=== PATIENT | female | born 1935 | race Caucasian/White ===

== ENCOUNTER 2016-12-13 15:43 | Outpatient (CLI) | payer MEDICARE, BC ==
[~2016-12-13] VITALS: Ht 167.6 cm; Wt 96.8 kg
--- NOTE | ~2016-12-13 | HEMODYNAMI ---
PATIENT:TEX PRADO MEDICAL RECORD: [id number] : 33 [id number] ADMISSION DATE: 12/13/16 Generatedon:12/14/201613:31 Patient name: TEX PRADO Patient #: [id number] SSN: [id number] : 1935 Date of study: 12/14/2016 Page: Of Hemodynamic Procedure Report Patient Data Patient Demographics Procedure consent was obtained First Name: TEX Gender: Female Last Name: JOHAN : 1935 [facility] Initial: Sesar Age: 81 year(s) Patient #: [id number] Race: SSN: [id number] Additional ID: [id number] Contact details Address: [address] [place] [address] State: [place] City: [place] Zip code: [address] Past Medical History Allergies Allergen Reaction Date Comments Reported Other allergy 12/14/2016 HCTZ Admission Admission Data Admission Date: 12/13/2016 Admission Time: 17:09 Arrival Date: 12/14/2016 Arrival Time: 17:09 Admit Source: Other Insurance Payor: Medicare Room #: D.2111 Height (in.): 66 BSA: 2.05 (m2) Height (cm.): 167.64 BMI: 34.38 (kg/m2) Weight (lbs.): 213 Weight (kg.): 96.62 Lab Results Lab Result Date: 12/14/2016 Lab Result Time: 0:00 Biochemistry Name Units Result Min Max BUN mg/dl 28 --(----)-* 7 18 Creatinine mg/dl 1 --(--*-)-- 0.6 1.3 CBC Name Units Result Min Max Hemoglobin g/dl 11.3 *-(----)-- 13.5 17.5 Procedure Procedure Types Cath Procedure Diagnostic Procedure LHC LHC w/Coronaries w/Grafts PCI Procedure Coronary Stent Initial Miscellaneous Procedures Moderate Sedation up to 15 minutes Procedure Description Procedure Date Procedure Date: 12/14/2016 Procedure Start Time: 13:04 Procedure End Time: 13:29 Procedure Staff Name Function Chandan Luna MD Performing Physician Nurys Riley RT Scrub Jim Chavarria RN Nurse Paulina Mcfarland RT Monitor Procedure Data Cath Procedure Fluoroscopy Diagnostic fluoroscopy Total fluoroscopy Time: 9.4 time: 9.4 min min Diagnostic fluoroscopy Total fluoroscopy dose: dose: 1094 mGy 1094 mGy Contrast Material Contrast Material Type Amount (ml) Isovue 300 186 Entry Location Entry Primary Successful Side Size Upsize Upsize Entry Closure Succes sful Closure Location (Fr) 1 (Fr) 2 (Fr) Remarks Device Remarks Femoral Right 5 Fr 6 Fr Exoseal artery Short Estimated blood loss: 10 ml Diagnostic catheters Device Type Used For End Catheter Placement Cordis 5Fr Pigtail Procedure Catheter (MP) Cordis 5Fr JL 4.0 Procedure Catheter (MP) Cordis 5Fr 3DRC Catheter Procedure (MP) Diagnostic Infinity 5Fr Procedure AR 2 MOD catheter Procedure Complications No complications Procedure Medications Medication Administration Route Dosage Oxygen NC 2 l/min Lidocaine 2% added to field 20 Heparin Flush Bag added to field 2 bags (1000units/500ml NS) 0.9% NaCl I.V. 100 ml/hr Versed I.V. 1 mg Fentanyl I.V. 50 mcg Versed I.V. 1 mg Fentanyl I.V. 50 mcg Heparin Bolus I.V. 4000 units Versed I.V. 1 mg Fentanyl I.V. 50 mcg Fentanyl I.V. 50 mcg Plavix P.O. 75 mg Hemodynamics Rest BSA: 2.05 (m2) HGB: 11.3 (g/dl) O2 Consumption: Estimated: 198.22 (ml/min) O2 Co nsumption indexed: Estimated:96.69 (ml/min/m) Heart Rate: 89 (bpm) Snapshots Pre Cath Intra NCS Post Cath Vital Signs Time Heart Resp SPO2 etCO2 DT4tict NIBP (mmHg) Rhythm Pain Sedation Rate (ipm) (%) (mmHg) (mmHg) Status Level (bpm) 12:58:30 84 19 96 0 0 173/84(132) NSR 0 (11) 10(A) , No pain 13:03:09 84 17 99 0 0 150/71(126) NSR 0 (11) 10(A) , No pain 13:08:20 85 18 98 0 0 145/66(122) NSR 0 (11) 9(A) , No pain 13:12:42 90 18 99 0 0 146/68(113) NSR 0 (11) 9(A) , No pain 13:17:09 89 16 99 0 0 151/67(112) NSR 0 (11) 9(A) , No pain 13:21:29 90 18 98 0 0 139/60(107) NSR 0 (11) 9(A) , No pain 13:25:53 89 18 99 0 0 141/66(95) NSR 0 (11) 10(A) , No pain 13:30:15 88 17 99 0 0 146/67(104) NSR 0 (11) 10(A) , No pain Medications Time Medication Route Dose Verified Delivered Reason Notes Effectiveness by by 12:57:21 Oxygen NC 2 Chandan Buffie used for l/min Jeremy Chavarria RN procedure 12:57:30 Lidocaine 2% added 20ml Chandan Chandan for local to vial Jeremy Luna MD anesthetic field 12:57:35 Heparin Flush added 2 Chandan Chandan used for Bag to bags Jeremy Luna MD procedure (1000units/500ml field NS) 12:57:44 0.9% NaCl I.V. 100 Chandan Buffie Per physician ml/hr Jeremy Chavarria RN 13:02:11 Versed I.V. 1 mg Chandan Buffie for sedation Jeremy Chavarria RN 13:02:16 Fentanyl I.V. 50 Chandan Buffie for sedation mcg Jeremy Chavarria RN 13:06:24 Versed I.V. 1 mg Chandan Buffie for sedation Jeremy Chavarria RN 13:06:28 Fentanyl I.V. 50 Chandan Buffie for sedation mcg Jeremy Chavarria RN 13:14:43 Heparin Bolus I.V. 4000 Chandan Buffie for verifi ed units Jeremy Chavarria RN anticoagulation with dr luna 13:18:56 Versed I.V. 1 mg Chandan Buffie for sedation Jeremy Chavarria RN 13:19:00 Fentanyl I.V. 50 Chandan Buffie for sedation mcg Jeremy Chavarria RN 13:25:09 Fentanyl I.V. 50 Chandan Buffie for sedation mcg Jeremy Chavarria RN 13:29:17 Plavix P.O. 75 mg Chandan Chavarria RN antiplatelet therapy Procedure Log Time Note 12:25:03 Informed consent obtained and on chart 12::58 Admit Source: Other 12:: Arrival Date: 12/14/2016 5:09:00 PM 12:26:18 Insurance Payor : Medicare 12::51 Lab Result : Creatinine 1 mg/dl 12:: Lab Result : BUN 28 mg/dl 12:: Lab Result : Hemoglobin 11.3 g/dl 12::56 Diagnostic Cath Status : Elective 12::32 Jim Chavarria RN sent for patient. Start room use. 12::33 Time tracking: Regular hours 12::39 Plan of Care:Hemodynamics will remain stable., Cardiac rhythm will remain stable., Comfort level will be maintained., Respiratory function will remain adequate., Patient/ family verbilizes understanding of procedure., Procedure tolerated without complication., Recovers from procedure without complications.. 12:42:07 Patient received from Med II to CCL 1 Alert and oriented. Tansferred to table in Supine position. 12:42:08 Warm blankets applied, and fariba hugger turned on for patient comfort. 12:42:08 Correct patient and procedure confirmed by team. 12:42:09 ECG and BP/O2 sat monitors applied to patient. 12:52:20 Patient Height : 66 cm 12:52:26 Patient Weight : 213 kg 12:52:51 Procedure type changed to Cath procedure, Diagnostic procedure, LHC, LHC w/Coronaries w/Grafts, PCI procedure, Coronary Stent Initial, Miscellaneous Procedures, Moderate Sedation up to 15 minutes 12:57:08 Vital chart was started 12:57:21 Oxygen 2 l/min NC was administered by Jim Chavarria RN; used for procedure; 12:57:30 Lidocaine 2% 20ml vial added to field was administered by Chandan Luna MD; for local anesthetic; 12:57:35 Heparin Flush Bag (1000units/500ml NS) 2 bags added to field was administered by Chandan Luna MD; used for procedure; 12:57:44 0.9% NaCl 100 ml/hr I.V. was administered by Jim Chavarria RN; Per physician; 12:59:36 Baseline sample Acquired. 12:59:47 Rhythm: sinus rhythm 12:59:50 Full Disclosure recording started 13:00:17 H&P Date Dictated: 12/13/2016 Within 30 days and on chart., H&P Addendum completed by physician on day of procedure. (MUST COMPLETE FOR ALL OUTPATIENTS). 13:00:25 Pre-procedure instructions explained to patient. 13:00:33 Family in patients room. 13:00:35 Patient NPO since Midnight. 13:00:58 Patient allergic to Other allergyHCTZ 13:01:02 Is the patient allergic to Iodine/contrast media? No. 13:01:04 Is patient on blood thinner?Yes 13:01:12 ACC The patient was administered the following blood thiners within the last 24 hours: ACCAspirin, ACCPlavix, ACCLovenox 13:01:16 Patient diabetic? No. 13:01:20 Snore? No 13:01:22 Sleep apnea? No 13:01:32 Patient pain scale 0/10 ?. 13:01:44 IV patent on arrival in left forearm with 0.9% NaCl at [facility]. 13:01:49 Lab results completed and on chart. 13:01:53 Right groin area was prepped with chlora-prep and draped in sterile fashion 13:01:55 Alarms reviewed by R. N. 13:01:56 Sharps counted by scrub and verified by R.N. 13:01:56 Physician paged 13:01:58 Physician arrived 13:01:59 --------ALL STOP TIME OUT------ 13:01:59 Final Timeout: patient, procedure, and site verified with staff and physician. All members of the team are in agreement. 13:02:02 Right groin site verified by team. 13:02:06 Sedation plan: IV Moderate Sedation Versed, Fentanyl 13:02:11 Versed 1 mg I.V. was administered by Jim Chavarria RN; for sedation; 13:02:16 Fentanyl 50 mcg I.V. was administered by Jim Chavarria RN; for sedation; 13:04:30 Procedure started. 13:04:43 Local anesthetic to right femoral artery with Lidocaine 2% by Chandan Luna MD.INITIAL ACCESS ONLY 13:04:50 Zero performed for pressure channel P1 13:06:04 A 5 Fr sheath was inserted into the Right Femoral artery 13:06:24 Versed 1 mg I.V. was administered by Jim Chavarria RN; for sedation; 13:06:28 Fentanyl 50 mcg I.V. was administered by Jim Chavarria RN; for sedation; 13:06:47 Use device set Femoral Dx 13:06:49 Acist Syringe opened to sterile field. 13:06:49 Bag Decanter opened to sterile field. 13:06:50 Medline Cath Pack opened to sterile field. 13:06:50 Terumo 5Fr [place] Sheath opened to sterile field. 13:06:51 [place] 260cm J .035 wire opened to sterile field. 13:06:52 Acist Hand Control opened to sterile field. 13:06:52 Acist Manifold opened to sterile field. 13:06:53 Diagnostic Infinity 5Fr Multipack catheter opened to sterile field. 13:06:54 Tegaderm 4 x 4 opened to sterile field. 13:06:59 A Cordis 5Fr Pigtail Catheter (MP) was advanced over the wire and used for Procedure. 13:07:11 EF : 55 % 13:07:16 Catheter removed. 13:07:26 A Cordis 5Fr JL 4.0 Catheter (MP) was advanced over the wire and used for Procedure. 13:08:41 Catheter removed. 13:09:27 A Cordis 5Fr 3DRC Catheter (MP) was advanced over the wire and used for Procedure. 13:09:42 ANDRADE to LAD angiography performed. 13:10:24 Catheter removed. 13:10:45 A Diagnostic Infinity 5Fr AR 2 MOD catheter was advanced over the wire and used for Procedure. 13:10:51 SVG to RCA angiography performed. 13:12:27 SVG to Circ angiography performed. 13:13:45 Sullivan Whisper J 300cm 0.014 guide wire opened to sterile field. 13:13:46 Merit BasixCompak Inflation Kit opened to sterile field. 13:13:47 Terumo 6Fr [place] Sheath opened to sterile field. 13:13:55 Catheter removed. 13:13:56 Proceeding to intervention. 13:14:19 Archipelagotronic Launcher 6Fr MB 1 guide catheter opened to sterile field. 13:14:29 Sheath upsized to a 6 Fr Short. 13:14:43 Heparin Bolus 4000 units I.V. was administered by Jim Chavarria RN; for anticoagulation; verified with dr luna 13:16:19 6 Fr MB 1 guide catheter was inserted over the wire 13:16:28 Whisper wire advanced. 13:16:33 Wire advanced across lesion. 13:18:53 Inflation Number: 1 A Biofreedom 2.5 x 11 stent was prepped and advanced across the 1st RPL. The stent was deployed at 13 ART for 0:10 (min:sec). 13:18:56 Versed 1 mg I.V. was administered by Jim Chavarria RN; for sedation; 13:19:00 Fentanyl 50 mcg I.V. was administered by Jim Chavarria RN; for sedation; 13:19:21 Stent catheter was removed intact over wire. 13:22:00 Wire removed. 13:22:18 Better Weekdays Choice PT Extra Support J 300cm .014 gu opened to sterile field. 13:22:27 choice pt wire advanced. 13:25:09 Fentanyl 50 mcg I.V. was administered by Jim Chavarria RN; for sedation; 13:25:39 Unable to access the PLV 13:26:44 Cordis 6Fr Exoseal opened to sterile field. 13:27:13 Wire removed. 13:27:15 Guide catheter removed. 13:27:31 Sheath removed intact; hemostasis achieved with Exoseal to the Right Femoral artery. 13:27:34 Procedure ended.(Physican Out) 13:27:47 Fluoroscopy time 09.40 minutes. 13:27:54 Fluoroscopy dose: 1094 mGy 13:27:54 Flurop Dose total: 1094 13:27:59 Contrast amount:Isovue 300 186ml. 13:28:01 Sharps counted by scrub and verified by R.N. 13:28:09 Post Procedure Pulses reassessed and unchanged 13:28:14 Estimated blood loss: 10 ml 13:28:15 Post procedure instruction explained to patient.Patient verbalizes understanding. 13::19 Patient needs reinforcement of post procedure teaching. 13:28:40 Procedure and supply charges have been captured, reviewed, submitted and are correct. 13:29:17 Plavix 75 mg P.O. was administered by Jim Chavarria RN; for antiplatelet therapy; 13:29:25 Procedure Complication : No complications 13::29 Vital chart was stopped 13::30 See physician's report for complete and final results. 13:29:33 Report given to [facility]. 13:29:37 Patient transfered to [facility] with Bed. 13:29:39 Procedure ended. 13:29:39 Full Disclosure recording stopped 13:29:42 End room use (Document Last) Intervention Summary Intervention Notes Time ActionType Lesion and Equipment Action# Pressure Duration Attributes Used 13:18:53 Place stent 1st RPL Biofreedom 1 13 00:10 2.5 x 11 stent Device Usage Item Name Manufacture Quantity Catalog Number Hospital Part Current Minim al Lot# / Charge Number Stock Stock Serial# Code Acist Acist 1 22534 [id number] 344647 373621 20 Syringe Medical Systems Inc Bag Microtek 1 2002S 654455 17324 484390 5 Subimage Inc. Medline Cardinal 1 [id number] 957464 82783 212043 5 Cath Pack Health Terumo 5Fr Terumo 1 [id number] 719570 252202 314859 [address] Eliceo 1 506342 722377 778377 180419 30 260cm J .035 wire Acist Hand Acist 1 52505 847887 467967 282175 5 Control Medical Systems Inc Acist Acist 1 38448 416771 878359 004526 5 Youxigu Medical Systems Inc Diagnostic Cardinal 1 [id number] 212970 20244 508600 30 Infinity Health 5Fr Multipack catheter Tegaderm 4 3M 1 1626W 496685 653285 982811 5 x 4 Cordis 5Fr Cardinal 1 376674 5 Pigtail Health Catheter (MP) Cordis 5Fr Cardinal 1 815318 5 JL 4.0 Health Catheter (MP) Cordis 5Fr Cardinal 1 782519 5 3DRC Health Catheter (MP) Diagnostic Cardinal 1 [id number] 134308 255777 170005 20 Infinity Health 5Fr AR 2 MOD catheter Sullivan Sullivan 1 [id number] 679655 911321 253243 5 Whisper J Vascular 300cm 0.014 guide wire Merit Merit 1 [id number] 740680 409980 541292 15 Unsilo Medical Inflation Kit Terumo 6Fr Terumo 1 [id number] 064144 658949 528285 40 [place] Sheath Medtronic Medtronic 1 [id number] 247467 31194 304114 1 Launcher 6Fr MB 1 guide catheter Biofreedom Biosensors 1 BFRC2-2511 806492 062179 5 [id number] 2.5 x 11 Europe SA stent [place] Sci [place] 1 [id number] 350461 265057 130593 5 Choice PT Scientific Extra Support J 300cm .014 gu Cordis 6Fr Cardinal 1 EX600 251859 086518 644170 10 Exoseal Health Signature Audit Gerald Stage Time Signature Unsigned Intra-Procedure 12/14/2016 Paulina Mcfarland 1:31:34 PM RT(R) Signatures Monitor : Paulina Mcfarland Signature : RT Date : Time : [facility] [address] [place] [address]
[2016-12-13 16:53] LABS: BASOPHILS 0.4 % (0-2); EOSINOPHILS 1.7 % (0-7); HEMATOCRIT 34.4 % (36.0-48.0); HEMOGLOBIN 11.3 g/dL (12-16); LYMPHOCYTES 30.3 % (15-50); MCH 31.1 pg (26.0-34.0); MCHC 32.8 g/dL (31.0-37.0); MCV 94.8 fL (80.0-100.0); MEAN PLATELET VOLUME 9.3 fL (7.4-10.4); NEUTROPHILS 59.6 % (40-80); PLATELET COUNT 236 10x3/uL (130-400); RBC 3.63 10x6/uL (4.00-5.40); RDW 14.9 % (11.5-14.5); WBC 7.5 10x3/uL (4.8-10.8)
[2016-12-13 17:24] LABS: ALBUMIN 3.9 g/dL (3.4-5.0); ALKALINE PHOSPHATASE 52 U/L (46-116); ALT (SGPT) 23 U/L (10-68); BILIRUBIN - TOTAL 0.46 mg/dL (0.2-1.3); CALC OSMOLALITY 272 mosm/kg (275-300); CALCIUM 9.6 mg/dL (8.5-10.1); CHLORIDE - SERUM 97 mmol/L (98-107); GLUCOSE 88 mg/dL (74-106); POTASSIUM - SERUM 4.1 mmol/L (3.5-5.1); PROTEIN - SERUM 7.8 g/dL (6.4-8.2); SODIUM 134 mmol/L (136-145); UREA NITROGEN 28 mg/dL (7-18); eGFR NON AFRICAN AMERICAN 56 mL/min (90-120)
[2016-12-13 17:38] LABS: CHOL - HDL RATIO 4.3 ratio (2.3-4.1); CHOLESTEROL, TOTAL 209 mg/dL (0-200); CKMB 2.1 U/L (0.0-3.6); CREATINE KINASE 97 UL (21-215); HDL CHOLESTEROL 49 mg/dL (32-96); LDL CHOLESTEROL 149 mg/dL (0-100); TRIGLYCERIDE 58 mg/dL (30-200)
[2016-12-13 17:39] LABS: TROPONIN-I < 0.017 ng/mL (0.000-0.060)
[2016-12-13 19:30] VITALS: BP 138/56
[2016-12-13 19:40] VITALS: Ht 167.6 cm; Wt 96.8 kg
[2016-12-13 20:00] VITALS: BP 138/56
--- NOTE | 2016-12-13 20:18 | NUR ---
ASSESSMENT COMPLETED FOR ADMISSION PROCESS. FAMILY TO BRING UP HER MEDICATIONS IN THE MORNING AND REPORTS SHE DOESN'T HAVE ANY TO TAKE AT BEDTIME. CALL LIGHT WITHIN REACH.
[2016-12-13] MEDS ORDERED: NITROSTAT0.4 MG SL (22:21)
--- NOTE | 2016-12-13 23:04 | NUR ---
PT. IN BED WITH HOB UP FOR COMFORT WITH EYES CLOSED AND RESP. DEEP AND EVEN. CALL LIGHT WITHIN REACH.
[2016-12-14] VITALS: BP 138/63
--- NOTE | 2016-12-14 01:18 | NUR ---
PT. IN BED WITH HOB UP FOR COMFORT WITH EYES CLOSED AND RESP. DEEP AND EVEN. CALL LIGHT WITHIN REACH.
--- NOTE | 2016-12-14 03:18 | NUR ---
PT. IN BED WITH HOB UP FOR COMFORT LYING ON HER LEFT SIDE. EYES ARE CLOSED AND RESP. DEEP AND EVEN. CALL LIGHT WITHIN REACH.
[2016-12-14 04:00] VITALS: BP 146/64
[2016-12-14 08:00] VITALS: BP 138/60
--- NOTE | 2016-12-14 08:06 | HP ---
PATIENT: TEX CORONA MEDICAL RECORD: [id number] ACCOUNT: [id number] LOCATION:[facility].2110 : 33 ADMISSION DATE: 12/13/16 HISTORY AND PHYSICAL EXAMINATION ADMITTING DIAGNOSES: 1. Unstable angina. 2. Coronary artery disease. 3. Status post coronary artery bypass graft surgery. 4. Rheumatoid rhinitis. HISTORY OF PRESENT ILLNESS: Mrs. Corona presents with anginal symptomatology times 1 day. It started in her jaw this morning, progressed to chest pain. As best she can remember, this is like her previous angina, status post bypass surgery approximately 10 years ago at [facility], 3-vessel. Her EKG is with no acute ST-T abnormalities. She continues to have the discomfort. PHYSICAL EXAMINATION: GENERAL APPEARANCE: Well-nourished, well-developed, appears stated age. Level of distress, comfortable. PSYCHIATRIC: Mental status, alert, normal affect. Orientation, oriented to time, place and person. EYES: Lids and conjunctiva, noninjected. No discharge, no pallor. ENT: Lips, teeth, gums, normal dentition. Oropharynx, no cyanosis, no pallor. NECK: Carotid arteries, bilateral normal upstroke, no bruits, no thrills. JUGULAR VEINS: No jugular venous pressure or distention. CERVICAL LYMPH NODES: Nontender, nonenlarged. THYROID: Not enlarged. Nontender. No nodules. LUNGS: Respiratory effort, unlabored. CHEST: Normal curvature. No thoracic deformity. No chest wall tenderness. Percussion, resonant. Auscultation, clear. No wheezes, no rales, no rhonchi. CARDIOVASCULAR: Precordial exam, nondisplaced. No heaves or pericardial thrills. Rate and rhythm, regular. Heart sounds, normal S1, normal S2. No S3, no gallop, no rub. Systolic murmur, not heard. Diastolic murmur, not heard. EXTREMITIES: No cyanosis, no edema. Peripheral pulses, full and equal in all extremities, except as noted. No bruits appreciated. ABDOMEN: Soft, nondistended. Normal aorta. No bruit. Nontender. No masses. Liver, nontender, no hepatomegaly. Spleen, nontender, no splenomegaly. MUSCULOSKELETAL: No joint tenderness. No joint swelling. No erythema. NEUROLOGICAL: Normal gait, normal strength, normal tone. SKIN: Warm and dry. REVIEW OF SYSTEMS: The patient reports easy bruising but reports no swollen glands. The patient reports no fever, no night sweats, no significant weight gain, no significant weight loss. No significant exercise tolerance. The patient reports no dry eyes, no irritation, no vision change. Patient reports no difficulty hearing and no ear pain. Patient reports no frequent nose bleeds or nose and sinus problems. Patient reports on arm pain on exertion. No shortness of breath while lying down. No history of heart murmur. Patient reports no cough, no wheezing or coughing up blood. Patient reports no abdominal pain, no vomiting. Normal appetite. No diarrhea and not vomiting blood. No nausea and no constipation. Patient reports no incontinence. No difficulty urinating. No hematuria. No increased frequency. Patient reports no muscle aches. No weakness, no arthralgias, no back pain. No swelling of the extremities. Patient reports no abnormal mole, no jaundice, no rashes. Reports HISTORY AND PHYSICAL [id number] IRONS,TEX J no loss of consciousness. No weakness and no numbness. No seizures, dizziness, or headaches. The patient reports no depression, no sleep disturbance, feeling safe in a relationship and no alcohol abuse. Patient reports on fatigue. Reports no runny nose or sinus pressure. No itching, no hives, and no frequent sneezing. OVERALL IMPRESSION: Most likely, she has graft failure or impending graft failure or new disease. We will proceed with coronary angiography in a.m. We will load with aspirin and Plavix and enoxaparin. Further care depends upon the results of the catheterization. TRANSINT:[id number] Voice Confirmation ID: [id number] DOCUMENT ID: [id number] TERRIE CERVANTES MD at 0806 CC: [id number] DICTATION DATE: 12/13/16 171 INFORMATION ASSURANCE ENGINEER: 12/13/16 1730 [place] [address]
--- NOTE | 2016-12-14 08:20 | NUR ---
AM ROUNDING- RECEIVED REPORT FROM ELECTRICAL SYSTEMS DRAFTER NURSE STEVE MALIK. PT IS CURRENTLY SITTING UP IN BED WITH EYES OPEN RESTING. NPO FOR CATH THIS AM. CONSENTS ARE SIGNED AND IN CHART. EZIO SINGH IS GETTING PT READY FOR HIPACLEANSE BATH. ON MONITOR SHOWING SR, HR 82. ON ROOM AIR. IV SEEN TO LEFT FOREARM THAT IS CURRENTLY SALINE LOCKED. PT HAS SUBLINGUAL NITRO AT BEDSIDE PER REPORT IF PT HAS ANY CHEST PAIN. PT IS ALERT AND ORIENTED. UP AD ASHLEY. WILL CONTINUE TO MONITOR AND CONTINUE WITH PLAN OF CARE.
[2016-12-14 12:00] VITALS: BP 144/59
--- NOTE | 2016-12-14 12:37 | NUR ---
COURTESY CLERK CALLED TO PRE-OP PT. GAVE PT PRE-OP MEDICATIONS ORDERED WITH A SIP OF WATER. PT URINATED PRIOR TO LEAVING ROOM. STEVE OLVERA IS TAKING PT TO COURTESY CLERK VIA BED. WILL CONTINUE TO MONITOR.
--- NOTE | 2016-12-14 13:36 | NUR ---
STEVE BARRIOS RECEIVED REPORT FROM CHIEF GROWTH OFFICER. WILL AWAIT PT ARRIVAL AND START VITAL SIGNS PER POLICY.
--- NOTE | 2016-12-14 13:46 | NUR ---
PT BACK FROM ASSEMBLER MOVEMENT VIA BED. ON AT 2L VIA NC. STARTED IV FLUIDS AT 100CC/HR ORDERED. PT INSTRUCTED TO LIE FLAT FOR 4 HOURS, PT AGREED. CLEAN, DRY, AND INTACT DRESSING SEEN TO RIGHT GROIN AREA FROM STENT PLACEMENT. SON IS AT BEDSIDE. WILL CONTINUE TO MONITOR.
[2016-12-14] MEDS ORDERED: ASPIRIN81 MG PO (13:49)
[2016-12-14] MEDS ORDERED: PLAVIX75 MG PO (13:50)
--- NOTE | 2016-12-14 14:31 | NUR ---
CALLED FILE DRAWER FINISHER BECAUSE PT IS ASKING IF SHE CAN EAT OR DRINK ANYTHING. SPOKE WITH NILTON AND NILTON STATED PT CAN EAT AND DRINK NOW. WILL CONTINUE TO MONITOR.
[2016-12-14 16:00] VITALS: BP 134/55
--- NOTE | 2016-12-14 16:35 | NUR ---
EKG DONE ORDERED AND PLACED IN CHART.
--- NOTE | 2016-12-14 16:49 | NUR ---
DRESSING TO PROCEDURE SITE WHERE PT HAD CATH IS CLEAN, DRY, AND INTACT. NO BLEEDING SEEN. PT HAS REMAINED LYING STRAIGHT INSTRUCTED. WILL CONTINUE TO MONITOR.
--- NOTE | 2016-12-14 17:55 | NUR ---
D/C INSTRUCTIONS EXPLAINED TO PT. D/C PAPERWORK SIGNED BY PT AND PLACED IN CHART. HEART MONITOR REMOVED AND RETURNED TO [facility] WITH TELEMETRY. IV REMOVED TO LEFT FOREARM WITH CATH TIP INTACT COVERED SITE WITH 2X2 GAUZE PADS AND SECURED WITH TAPE. INSTRUCTED PT TO HOLD FIRM DIRECT PRESSURE OVER CATH SITE (RIGHT GROIN) IF PT SEES BLEEDING FROM SITE FOR SOME REASON, PT AGREED. DRESSING TO RIGHT GROIN WHERE PT HAD CATH TODAY IS CLEAN, DRY, AND INTACT. AWAITING PT TO GET BELONGINGS TOGETHER AND GET DRESSED. WILL CONTINUE TO MONITOR.
--- NOTE | 2016-12-14 18:22 | NUR ---
PT D/C VIA WHEELCHAIR.
--- NOTE | 2016-12-15 13:47 | OP ---
PATIENT NAME: TEX PRADO MEDICAL RECORD: [id number] :33 LOCATION:D.M2 D.2111 ADMISSION DATE:12/13/16 SURGEON: TERRIE CERVANTES MD DATE OF OPERATION: 12/14/2016 PROCEDURES: 1. PTCA stent, RCA, PLV through patent vein graft. 2. Left heart catheterization. 3. Selective coronary angiography. 4. Left ventriculogram. 5. ANDRADE angiography. 6. Vein graft angiography. INDICATIONS: Angina and coronary artery disease. PROCEDURE IN DETAIL: After informed consent was obtained and after detailed explanation of risks, benefits as well as alternative therapies, the patient elected to proceed with angiogram and angioplasty. The right femoral area was prepped and draped in normal sterile fashion. The right femoral artery was cannulated via modified Seldinger technique with placement of 6-Telugu sheath. All catheters were exchanged through this sheath. FINDINGS: Left ventriculogram was performed in the standard 30-degree HERRON view, reveals preserved cardiac wall motion, ejection fraction is 60%. SELECTIVE CORONARY ANGIOGRAPHY: 1. Left main is with 80% stenosis. 2. The left anterior descending is totally occluded. 3. Left circumflex is totally occluded. 4. Right coronary is totally occluded. 5. ANDRADE to the LAD is widely patent. Distal LAD is diffusely diseased, but widely patent. 6. Vein graft to the circumflex is widely patent. Distal circumflex is with no significant disease. 7. Vein graft to the right coronary is patent; however, the right PDA has a 90% stenosis at the ostium with a very angulated takeoff. The PLV has 80% stenosis in the mid vessel. This is a relatively large PLV territory. PTCA STENT OF THE PLV: PLV lesion was 8 mm in length. There was ZEUS-3 flow before the intervention and this was a ____ vessel. We addressed this is a 2.5 x 11 mm BioFreedom stent. Result was 0% residual stenosis, ZEUS-3 flow after the intervention. We attempted to wire the PDA. We could not wire the PDA due to the extreme angulated takeoff. OVERALL IMPRESSION: Successful percutaneous transluminal coronary angioplasty stent of the right PLV going from 80% initial stenosis to 0% residual stenosis. TRANSINT:[id number] Voice Confirmation ID: [id number] DOCUMENT ID: [id number] OPERATIVE REPORT [id number] TEX PRADO JEFFREY MD at 1347 CC: [id number] DICTATION DATE: 12/14/16 1357 REEXAMINER: 12/14/161921 DIS IN 12/14/16 [facility] [address] [place] [address]
--- NOTE | 2016-12-16 08:58 | DS ---
PATIENT:TEX CORONA :33 MEDICAL RECORD: [id number] DISCHARGE SUMMARY ADMISSION DATE: 12/13/16 DISCHARGE DATE: 12/14/16 DISCHARGE DIAGNOSES: 1. Angina. 2. Coronary artery disease. 3. Percutaneous transluminal coronary angioplasty stent of right coronary artery through patent vein graft this admission. HOSPITAL COURSE: Mrs. Corona presents with anginal symptomatology, found to have significant disease of the distal RCA through the patent vein graft, underwent successful PTCA stent of this territory. She had an uneventful postop course. She was discharged home with the addition of Plavix to her medical regimen. Will follow up with [facility] in 1 month. TRANSINT:[id number] Voice Confirmation ID: [id number] DOCUMENT ID: [id number] TERRIE CERVANTES MD at 0858 CC: [id number] DICTATION DATE: 12/14/16 1355 CHIEF COMMERCIAL OFFICER: 12/15/16 0922 DEP CLI 12/14/16 [id number] [place] [address]
== END 2016-12-14 18:22 | disposition home or self-care (01) ==
LOC: OBSVTIME → D.ER 15:43 → D.OPS 15:43 → D.M2 17:09 → OBSVTIME 17:09 → D.M2 17:09 → D.ER 17:09 → EDSTATUS 12-14 08:30 → D.M2 12-14 18:22 → D.OPS 12-14 18:22
PROVIDERS: Emergency Medicine
DX: I25.119 Atherosclerotic heart disease of native coronary artery with unspecified angina pectoris (principal); M06.9 Rheumatoid arthritis, unspecified; Z00.6 Encounter for examination for normal comparison and control in clinical research program
CPT/HCPCS: 93458; C9600

== ENCOUNTER → 2018-05-09 08:22 | Outpatient (CLI) | payer MEDICARE, BC ==
[2016-12-13 19:40] VITALS: BMI 34.4
[~2018-05-09 08:22] MED LIST: ASPIRIN81 MG PO; NITROSTAT0.4 MG SL; PLAVIX75 MG PO
== END | disposition home or self-care (01) ==
LOC: D.CT 08:22
DX: R93.8 Abnormal findings on diagnostic imaging of other specified body structures (principal)

== ENCOUNTER 2018-05-15 11:00 | Inpatient (IN) | payer MEDICARE, BC ==
[~2018-05-15] VITALS: Ht 167.6 cm; Wt 100.6 kg
--- NOTE | ~2018-05-15 | OP ---
PATIENT NAME: TEX PRADO MEDICAL RECORD: [id number] :33 LOCATION:DNARAI [id number] ADMISSION DATE:05/16/18 SURGEON: KEVYN ABURTO MD DATE OF OPERATION: 05/16/2018 SURGEON: Kevyn Aburto MD E COMMERCE MARKETING ANALYST: MARILEE Gonzalez MD and MILDRED Fuchs OPERATION PERFORMED: Left carotid endarterectomy with patch closure. PREOPERATIVE DIAGNOSIS: Severe left internal carotid artery stenosis, symptomatic. POSTOPERATIVE DIAGNOSIS: Severe left internal carotid artery stenosis, symptomatic. ANESTHESIA: General endotracheal anesthesia. ESTIMATED BLOOD LOSS: 20 cc. COMPLICATIONS: None. SPECIMENS: Plaque for permanent specimen. CONDITION: Stable. DISPOSITION: CV ICU. OPERATIVE FINDINGS: 1. Calcified plaque with slight ulceration in the distal common carotid extending up into the proximal left internal carotid artery where the plaque feathered well distally and a CorMatrix patch was used for closure. 2. EEG stable throughout the surgery and postoperatively neurologically intact to CV ICU. OPERATIVE INDICATION: Symptomatic carotid stenosis. PROCEDURE IN DETAIL: The patient was brought to the operating suite. General anesthesia was obtained. The patient was prepped and draped. EEG monitor was attached and monitored. The oblique incision was made in the left neck, taken down through the subcutaneous tissue and platysma. Flaps were created to dissect out the common carotid artery. Facial venous branch was divided between ligatures and suture ligatures. The external carotid and thyroid branch were dissected out and encircled with vessel loop. The internal carotid was dissected out well beyond its tortuous portion and calcified portion into the distal internal carotid artery and encircled with a vessel loop. Heparin was given. After the heparin had circulated for 3 minutes, clamps were placed and EEG was monitored for 2 minutes with no change. The arteriotomy was begun in the common carotid artery taken out the region of dense calcification of the proximal internal carotid artery and into a relatively normal region of internal carotid artery. The endarterectomy was begun by dividing the plaque in the common carotid artery with an eversion endarterectomy of the thyroid branch and external carotid and distally, the plaque feathered well. Thorough irrigation was undertaken and all bits of loose debris were removed. A CorMatrix patch was OPERATIVE REPORT [id number] TEX PRADO fashioned to the appropriate size and sutured along the edge of the arteriotomy and prior to completing the anastomosis, backbleeding was allowed from all 3 major vessels and the endarterectomy bed was flushed with heparinized saline. Anastomosis was completed and flow restored first to the external carotid and then to the internal carotid. Hemostasis was ensured and several patch sutures were used for hemostasis. Heparin was reversed. EEG was normal. Thorough irrigation was undertaken. A drain was placed through a separate stab wound. The hemostasis was ensured and the neck was closed in 3 layers and with Dermabond. The patient was stable to the CV ICU after reversal of anesthesia and extubation. TRANSINT:[id number] Voice Confirmation ID: [id number] DOCUMENT ID: [id number] KEVYN ABURTO MD at 0720 CC: [id number] DICTATION DATE: 05/16/18 1623 WIND TURBINE MACHINIST: 05/16/18 1741 ADM IN [facility] [address] [place] [address]
[2018-05-16] VITALS (41 sets, daily range): BP systolic 103–139; BP diastolic 40–55; BMI 35.4
[2018-05-16 07:26] LABS: HEMOGLOBIN 11.5 g/dL (12-16); MCH 31.6 pg (26.0-34.0); MCHC 33.8 g/dL (31.0-37.0); MCV 93.4 fL (80.0-100.0); MEAN PLATELET VOLUME 9.1 fL (7.4-10.4); RBC 3.64 10x6/uL (4.00-5.40); RDW 15.3 % (11.5-14.5); WBC 7.6 10x3/uL (4.8-10.8)
[2018-05-16 07:30] LABS: APPEARANCE HAZY (CLEAR); BILIRUBIN NEGATIVE (NEGATIVE); COLOR YELLOW (YELLOW); GLUCOSE NEGATIVE (NEGATIVE); KETONE NEGATIVE (NEGATIVE); NITRITE NEGATIVE (NEGATIVE); PROTEIN NEGATIVE (NEGATIVE); SPECIFIC GRAVITY 1.005 (1.005-1.020); UROBILINOGEN NORMAL (NORMAL)
[2018-05-16 07:35] LABS: WHITE CELLS - URINE >50 /hpf (0-5)
[2018-05-16 07:36] LABS: BACTERIA MODERATE /hpf (NONE SEEN); EPITHELIAL CELLS OCC /hpf (0-5); RED CELLS - URINE 0-5 /hpf (0-5)
[2018-05-16 07:37] LABS: APTT 30.9 SECONDS (22.8-39.4); INR 1.01 (0.85-1.17); PROTIME 12.9 SECONDS (11.6-15.0)
[2018-05-16 07:45] LABS: ALBUMIN 3.8 g/dL (3.4-5.0); ANION GAP 11.2 mmol/L (8-16); BILIRUBIN - TOTAL 0.52 mg/dL (0.2-1.3); CALCIUM 9.3 mg/dL (8.5-10.1); CARBON DIOXIDE 30.4 mmol/L (21.0-32.0); CREATININE - SERUM 1.1 mg/dL (0.6-1.3); POTASSIUM - SERUM 4.6 mmol/L (3.5-5.1); PROTEIN - SERUM 7.9 g/dL (6.4-8.2)
[2018-05-16] MEDS ORDERED: COZAAR50 MG PO (07:55)
[2018-05-16] MEDS ORDERED: TIKOSYN250 MCG PO (07:56)
[2018-05-16] MEDS ORDERED: ZYRTEC10 MG PO (07:57)
[2018-05-16] MEDS ORDERED: ALDACTONE25 MG PO (07:58)
[2018-05-16] MEDS ORDERED: ARMOUR THYROID30 MG PO (07:59)
[2018-05-17] VITALS (78 sets, daily range): BP systolic 101–173; BP diastolic 43–87; Ht 167.6 cm; Wt 100.6 kg
[2018-05-18] VITALS (50 sets, daily range): BP systolic 109–177; BP diastolic 37–73
[2018-05-18] MEDS ORDERED: PLAVIX75 MG PO (11:08)
[2018-05-18] MEDS ORDERED: METOPROLOL TART50 MG PO (11:09)
[2018-05-18] MEDS ORDERED: PERCOCET 5-3251 TAB PO (11:14)
[2018-05-19] VITALS (54 sets, daily range): BP systolic 105–164; BP diastolic 38–98
[2018-05-20] VITALS (42 sets, daily range): BP systolic 112–159; BP diastolic 40–62
[2018-05-21] VITALS (10 sets, daily range): BP systolic 123–149; BP diastolic 46–64
[2018-05-21] MEDS ORDERED: PROCARDIA10 MG PO (08:42)
== END 2018-05-21 10:15 | disposition home or self-care (01) | DRG 39 ==
LOC: D.SDCHOLD 11:00 → D.CVICU 05-16 06:12 → D.SDCHOLD 05-16 06:12 → D.CVICU 05-16 12:18
PROVIDERS: Internal Medicine Cardiovascular Disease; Thoracic Surgery (Cardiothoracic Vascular Surgery)
PROC: 03UL0JZ Supplement Left Internal Carotid Artery with Synthetic Substitute, Open Approach (ICD-10-PCS; 2018-05-16)
PROC: 03CL0ZZ Extirpation of Matter from Left Internal Carotid Artery, Open Approach (ICD-10-PCS; principal; 2018-05-16 11:00)
DX: I65.22 Occlusion and stenosis of left carotid artery (principal); I10 Essential (primary) hypertension; E78.5 Hyperlipidemia, unspecified; E05.90 Thyrotoxicosis, unspecified without thyrotoxic crisis or storm; I25.10 Atherosclerotic heart disease of native coronary artery without angina pectoris; I15.0 Renovascular hypertension

== ENCOUNTER 2018-06-21 14:42 | Emergency (ER) | payer MEDICARE, BC ==
[~2018-06-21] VITALS: Ht 167.6 cm; Wt 97.3 kg
[~2018-06-21 14:42] MED LIST changes: +ALDACTONE25 MG PO; +ARMOUR THYROID30 MG PO; +COZAAR50 MG PO; +METOPROLOL TART50 MG PO; +PERCOCET 5-3251 TAB PO; +PROCARDIA10 MG PO; +TIKOSYN250 MCG PO; +ZYRTEC10 MG PO
[2018-06-21 14:51] VITALS: Ht 167.6 cm; Wt 97.3 kg
[2018-06-21 15:24] LABS: BASOPHILS 0.5 % (0-2); EOSINOPHILS 1.3 % (0-7); HEMATOCRIT 32.2 % (36.0-48.0); HEMOGLOBIN 10.8 g/dL (12-16); IMMATURE GRANULOCYTES 0.1 % (0-5); LYMPHOCYTES 27.4 % (15-50); MCH 31.7 pg (26.0-34.0); MCHC 33.5 g/dL (31.0-37.0); MCV 94.4 fL (80.0-100.0); MEAN PLATELET VOLUME 9.3 fL (7.4-10.4); MONOCYTES 7.1 % (2-11); NEUTROPHILS 63.6 % (40-80); PLATELET COUNT 220 10x3/uL (130-400); RBC 3.41 10x6/uL (4.00-5.40); RDW 15.9 % (11.5-14.5); WBC 8.6 10x3/uL (4.8-10.8)
[2018-06-21 15:32] LABS: APTT 25.7 SECONDS (22.8-39.4); INR 1.01 (0.85-1.17); PROTIME 12.9 SECONDS (11.6-15.0)
[2018-06-21 15:39] LABS: ALBUMIN 3.8 g/dL (3.4-5.0); ALKALINE PHOSPHATASE 58 U/L (46-116); ALT (SGPT) 20 U/L (10-68); BILIRUBIN - TOTAL 0.32 mg/dL (0.2-1.3); CALC OSMOLALITY 269 mosm/kg (275-300); CALCIUM 9.3 mg/dL (8.5-10.1); CARBON DIOXIDE 30.2 mmol/L (21.0-32.0); CHLORIDE - SERUM 97 mmol/L (98-107); CREATININE - SERUM 1.2 mg/dL (0.6-1.3); GLUCOSE 119 mg/dL (74-106); POTASSIUM - SERUM 4.4 mmol/L (3.5-5.1); PROTEIN - SERUM 7.9 g/dL (6.4-8.2); SODIUM 132 mmol/L (136-145); UREA NITROGEN 23 mg/dL (7-18); eGFR NON AFRICAN AMERICAN 45 mL/min (90-120)
[2018-06-21 15:50] LABS: CKMB 0.7 U/L (0.0-3.6); CREATINE KINASE 54 UL (21-215); MAGNESIUM - SERUM 2.1 mg/dL (1.8-2.4); THYROID STIMULATING HORMONE 18.17 uIU/mL (0.36-3.74)
[2018-06-21 15:51] LABS: TROPONIN-I < 0.017 ng/mL (0.000-0.060)
[2018-06-21 17:34] VITALS: BP 166/62
== END 2018-06-21 18:40 | disposition other institution (70) ==
LOC: D.ER 14:42
PROVIDERS: Family Medicine
DX: R53.1 Weakness (principal); R47.01 Aphasia; R47.1 Dysarthria and anarthria; R94.6 Abnormal results of thyroid function studies; G45.9 Transient cerebral ischemic attack, unspecified; I10 Essential (primary) hypertension; Z95.1 Presence of aortocoronary bypass graft; I73.9 Peripheral vascular disease, unspecified; I45.10 Unspecified right bundle-branch block

== ENCOUNTER 2018-12-20 16:32 | Inpatient (IN) | payer MEDICARE, BC ==
[2018-12-20] MEDS ORDERED: PRADAXA150 MG PO (16:41)
[2018-12-20] MEDS ORDERED: LEVOXYL137 MCG PO (16:41)
[2018-12-20] MEDS ORDERED: LIPITOR40 MG PO (16:42)
[2018-12-20 17:49] LABS: ALBUMIN 3.8 g/dL (3.4-5.0); ALKALINE PHOSPHATASE 58 U/L (46-116); ALT (SGPT) 19 U/L (10-68); BILIRUBIN - TOTAL 0.96 mg/dL (0.2-1.3); CALC OSMOLALITY 266 mosm/kg (275-300); CARBON DIOXIDE 24.8 mmol/L (21.0-32.0); CHLORIDE - SERUM 94 mmol/L (98-107); GLUCOSE 143 mg/dL (74-106); HEMATOCRIT 33.1 % (36.0-48.0); HEMOGLOBIN 11.5 g/dL (12-16); MCH 31.5 pg (26.0-34.0); MCHC 34.7 g/dL (31.0-37.0); MCV 90.7 fL (80.0-100.0); MEAN PLATELET VOLUME 9.4 fL (7.4-10.4); PLATELET COUNT 190 10x3/uL (130-400); POTASSIUM - SERUM 4.6 mmol/L (3.5-5.1); PROTEIN - SERUM 7.4 g/dL (6.4-8.2); RBC 3.65 10x6/uL (4.00-5.40); RDW 15.4 % (11.5-14.5); SODIUM 131 mmol/L (136-145); TROPONIN-I < 0.017 ng/mL (0.000-0.060); UREA NITROGEN 17 mg/dL (7-18); WBC 8.9 10x3/uL (4.8-10.8); eGFR NON AFRICAN AMERICAN 56 mL/min (90-120)
[2018-12-20 18:16] LABS: LYMPHOCYTES 6 % (15-50); MONOCYTES 4 % (2-11); NEUTROPHILS 88 % (40-80); PLATELET ESTIMATE NORMAL
[2018-12-20 18:34] VITALS: BP 141/82
[2018-12-20 18:56] LABS: APPEARANCE HAZY (CLEAR); BILIRUBIN NEGATIVE (NEGATIVE); COLOR YELLOW (YELLOW); GLUCOSE NEGATIVE (NEGATIVE); KETONE NEGATIVE (NEGATIVE); NITRITE NEGATIVE (NEGATIVE); PROTEIN NEGATIVE (NEGATIVE); SPECIFIC GRAVITY 1.015 (1.005-1.020); UROBILINOGEN NORMAL (NORMAL)
[2018-12-20 18:58] LABS: BACTERIA MODERATE /hpf (NONE SEEN); EPITHELIAL CELLS 0-5 /hpf (0-5); RED CELLS - URINE 0-5 /hpf (0-5)
--- NOTE | 2018-12-20 21:38 | NUR ---
rocephin stopped at 2131
--- NOTE | 2018-12-20 21:57 | NUR ---
PT ARRIVED TO ROOM 2132 [facility] REC AND HISTORY COMPLETE. PT UNABLE TO TELL NURSE MG OF MEDICATION OR WHICH MEDICATIONS SHE IS ON. PT IS AAO, STATES SHE CAN FEEL SHE IS NOT THINKING WELL AND IT COULD BE R/T TO THE UTI. LEFT FOREARM 20G PIV S/L. TELEMETRY PLACED 64 SR SLIGHT MURMUR HEARD, PT STATED HAD A MURMUR HER WHOLE LIFE. PT LUNGS CLEAR. NO COUGH. UP WITH MINIMAL ASSIST. PT WILL CALL FOR ASSIST WHEN NEEDED. WILL CPOC
[2018-12-20 22:08] VITALS: BP 180/67
[2018-12-21] VITALS (7 sets, daily range): BP systolic 98–176; BP diastolic 50–97; BMI 34.7
--- NOTE | 2018-12-21 00:20 | NUR ---
CALLED GISELLE R/T HTN. UNABLE TO OBTAIN AN ORDER FROM ER. GISELLE STATED HYDRALAZINE 10MG IV Q6H FOR A SYSTOLIC ABOVE 170
--- NOTE | 2018-12-21 02:09 | NUR ---
PT ASLEEP. AROUSES TO VERBAL STIMULI. FIXED SAP PPM CONSULTANT. PT SR 82 DENIES ANY NEEDS. WILL CPOC
[2018-12-21 06:56] LABS: BASOPHILS 0.5 % (0-2); EOSINOPHILS 2.3 % (0-7); HEMOGLOBIN 10.3 g/dL (12-16); IMMATURE GRANULOCYTES 0.2 % (0-5); LYMPHOCYTES 19.5 % (15-50); MCH 30.8 pg (26.0-34.0); MCHC 33.2 g/dL (31.0-37.0); MEAN PLATELET VOLUME 8.9 fL (7.4-10.4); MONOCYTES 10.8 % (2-11); NEUTROPHILS 66.7 % (40-80); PLATELET COUNT 179 10x3/uL (130-400); RBC 3.34 10x6/uL (4.00-5.40); RDW 15.6 % (11.5-14.5)
[2018-12-21 07:03] LABS: MCV 92.8 fL (80.0-100.0); WBC 6.5 10x3/uL (4.8-10.8)
[2018-12-21 07:09] LABS: ANION GAP 7.4 mmol/L (8-16); CALCIUM 9.2 mg/dL (8.5-10.1); CARBON DIOXIDE 30.8 mmol/L (21.0-32.0); MAGNESIUM - SERUM 1.9 mg/dL (1.8-2.4); POTASSIUM - SERUM 4.2 mmol/L (3.5-5.1)
--- NOTE | 2018-12-21 07:39 | NUR ---
PT DEANNA AND ORIENTED. FAMILY AT BEDSIDE. ASKING WHEN REGIONAL GUIDE WILL BE AROUND TO VISIT. INFORMED HER TO THE BEST OF MY ABILITIES. NO OTHER COMPLAINTS/CONCERNS AT THIS TIME. CL MISAEL. SRX2.
--- NOTE | 2018-12-21 10:39 | NUR ---
I have reviewed this patient and I concur with the Shift Assessment completed by the Licensed Practical Nurse today this shift.
--- NOTE | 2018-12-21 14:58 | NUR ---
PT ASLEEP, DID NOT DISTURB AT THIS TIME. CL IN REACH, SRX2. BED ALARM ON
--- NOTE | 2018-12-21 15:16 | NUR ---
PT REFUSES SCDS, LIKES TO MOVE TO MUCH AND DOESN'T WANT THE RESTRICTION.
[2018-12-21 16:18] LABS: CKMB 0.6 U/L (0.0-3.6); CREATINE KINASE 54 UL (21-215)
[2018-12-21 16:19] LABS: TROPONIN-I < 0.017 ng/mL (0.000-0.060)
--- NOTE | 2018-12-21 17:29 | NUR ---
PT AWAKE AND ORIENTED AT THIS TIME. TALKING ON THE PHONE. DAUGHTER ADN GRANDCHILD AT BEDSIDE. NO COMPLAINTS OR CONCERNS VOICED AT THIS TIME. CL IN REACH, SRX2.
--- NOTE | 2018-12-21 20:49 | NUR ---
INITIAL ROUNDS COMPLETED AT 1910 HRS. PT BRUSHING TEETH, DENIES ANY DISCOMFORT. ASSESSMENT COMPLETED AT 1940 HRS. ALERT AND ORIENTED TO PERSON, PLACE AND TIME. MARISCAL. SR PER CM HR 75. UP AD ASHLEY. GAIT EVEN AND STEADY. IV TO LFA BRUSIED AND OCCLUDED. DC'D WITH CATHETER INTACT. EKG DONE. NEW IV STARTED #22 TO L HAND WITH ATTEMPT X1 AT 2030 HRS. PT TOLERATED ACTIVITY WELL. SR UP X2,CALL LIGHT WITHIN REACH.
[2018-12-21 21:21] LABS: CKMB 0.6 U/L (0.0-3.6); CREATINE KINASE 51 UL (21-215)
[2018-12-21 21:22] LABS: TROPONIN-I < 0.017 ng/mL (0.000-0.060)
--- NOTE | 2018-12-21 22:54 | NUR ---
PT RESTING WITH EYES CLOSED. RESP EVEN AND REGULAR. SR UP X2, CALL LIGHT WITHIN REACH.
--- NOTE | 2018-12-22 00:18 | NUR ---
PT RESTING WITH EYES CLOSED. RESP EVEN AND REGULAR. SR UP X2,CALL LIGHT WITHIN REACH.
--- NOTE | 2018-12-22 01:54 | NUR ---
SCHEDULED EKG DONE. PT DENIES ANY DISCOMFORT. SR UP X2, CALL LIGHT WITHIN REACH.
[2018-12-22 02:34] LABS: BASOPHILS 0.3 % (0-2); EOSINOPHILS 2.8 % (0-7); HEMATOCRIT 30.8 % (36.0-48.0); HEMOGLOBIN 10.5 g/dL (12-16); IMMATURE GRANULOCYTES 0.3 % (0-5); LYMPHOCYTES 18.2 % (15-50); MCH 31.6 pg (26.0-34.0); MCHC 34.1 g/dL (31.0-37.0); MCV 92.8 fL (80.0-100.0); MEAN PLATELET VOLUME 8.9 fL (7.4-10.4); MONOCYTES 12.5 % (2-11); NEUTROPHILS 65.9 % (40-80); PLATELET COUNT 176 10x3/uL (130-400); RBC 3.32 10x6/uL (4.00-5.40); RDW 15.8 % (11.5-14.5); WBC 6.9 10x3/uL (4.8-10.8)
[2018-12-22 02:49] LABS: ALBUMIN 3.3 g/dL (3.4-5.0); ALKALINE PHOSPHATASE 47 U/L (46-116); ALT (SGPT) 15 U/L (10-68); CALC OSMOLALITY 267 mosm/kg (275-300); CALCIUM 9.1 mg/dL (8.5-10.1); CARBON DIOXIDE 29.4 mmol/L (21.0-32.0); CHLORIDE - SERUM 100 mmol/L (98-107); CKMB 0.7 U/L (0.0-3.6); CREATINE KINASE 47 UL (21-215); CREATININE - SERUM 0.9 mg/dL (0.6-1.3); GLUCOSE 103 mg/dL (74-106); MAGNESIUM - SERUM 1.8 mg/dL (1.8-2.4); POTASSIUM - SERUM 4.2 mmol/L (3.5-5.1); PROTEIN - SERUM 6.8 g/dL (6.4-8.2); SODIUM 133 mmol/L (136-145); TROPONIN-I < 0.017 ng/mL (0.000-0.060); UREA NITROGEN 17 mg/dL (7-18); eGFR NON AFRICAN AMERICAN 63 mL/min (90-120)
--- NOTE | 2018-12-22 04:25 | NUR ---
PT RESTING WITH EYES CLOSED. RESP EVEN AND REGULAR. SR UP X2, CALL LIGHT WITHIN REACH.
[2018-12-22 04:32] VITALS: BP 100/70
--- NOTE | 2018-12-22 05:48 | NUR ---
VSS THROUGHOUT NIGHT. SR PER CM. PT DENIED ANY DISCOMFORT. NEEDSMET; WILL CONTINUE TO MONITOR.
--- NOTE | 2018-12-22 07:30 | NUR ---
PT AWAKE AND ORIENTED, ON PHONE. STATES SHED LIKE TO GO HOME TODAY. NO COMPLAINTS/CONCERNS AT THIS TIME. CL IN REACH, SRX2.
[2018-12-22] MEDS ORDERED: PLAVIX75 MG PO (08:25)
[2018-12-22] MEDS ORDERED: COZAAR50 MG PO (09:21)
[2018-12-22] MEDS ORDERED: OMNICEF300 MG PO (09:49)
--- NOTE | 2018-12-22 10:29 | MORECARE ---
CASE MANAGEMENT DISCHARGE SUMMARY PATIENT: TEX PRADO UNIT: [id number] ADM DATE: 12/21/18 AGE: 83 : 34 SEX: F ROOM/BED: D.2130 AUTHOR: SMITHA NICHOLSON PHYSICIAN: REFERRING PHYSICIAN: LYSSA BUCKLEY MD DATE OF SERVICE: 12/22/18 Discharge Plan Patient Name: TEX PRADO [facility] [facility] 1935 Planned Disposition: Home Anticipated Discharge Date: Discharge Date: Expected LOS: Initial Reviewer: [email or web address] Initial Review Date: 12/22/2018 Generated: 12/22/18 11:28 am Coverage Notice Reviewer: [email or web address] Jennifer Longo Notice Issued Date-Time: 12/22/2018 9:00 Notice Type: IM Discharge Notice Notice Delivered To: Patient Relationship to Patient: Self Business Machine Operator Name: Delivery Method: HAND - Hand Delivered Sahara Days: Prior Verbal Notification: Recipient Understood Notice: Yes Recipient Signature: Yes Med Rec Note Co-signed by Attending: Coverage Notice Comment: Patient Name: TEX PRADO Page [phone] at 1029 All edits/amendments must be made on the electronic document DICTATION DATE: 12/22/18 1028 PILATES COORDINATOR: TREVOR 12/22/18 1028 RPT#: [id number] DC DATE: STATUS: ADM IN [facility] [address] [place] [address] END OF REPORT
--- NOTE | 2018-12-22 11:00 | NUR ---
I have reviewed this patient and I concur with the Shift Assessment completed by the Licensed Practical Nurse today this shift.
--- NOTE | 2018-12-22 11:01 | NUR ---
PT ESCORTED OUT VIA WHEELCAHIR TO DAUGHTER IN LAW'S POV. NO COMPLAINTS/CONCERNS VOICED AT THIS TIME.
--- NOTE | 2018-12-24 09:07 | MORECARE ---
CASE MANAGEMENT DISCHARGE SUMMARY PATIENT: TEX PRADO UNIT: [id number] ADM DATE: 12/21/18 AGE: 83 : 34 SEX: F ROOM/BED: D.2130 AUTHOR: SMITHA NICHOLSON PHYSICIAN: REFERRING PHYSICIAN: LYSSA BUCKLEY MD DATE OF SERVICE: 12/24/18 Discharge Plan Patient Name: TEX PRADO [facility] [facility] 1935 Planned Disposition: Home Anticipated Discharge Date: 12/22/18 Discharge Date: 12/22/2018 Expected LOS: 1 Initial Reviewer: [email or web address] Initial Review Date: 12/22/2018 Generated: 12/24/18 10:06 am Coverage Notice Reviewer: [email or web address] Jennifer Longo Notice Issued Date-Time: 12/22/2018 9:00 Notice Type: IM Discharge Notice Notice Delivered To: Patient Relationship to Patient: Self Cement Mixer Driver Name: Delivery Method: HAND - Hand Delivered Sahara Days: Prior Verbal Notification: Recipient Understood Notice: Yes Recipient Signature: Yes Med Rec Note Co-signed by Attending: Coverage Notice Comment: Last DP export: 12/22/18 9:29 am Patient Name: TEX PRADO Page 69210 at 0907 All edits/amendments must be made on the electronic document DICTATION DATE: 12/24/18905 BOXING MACHINE OPERATOR: DM 12/24/18905 RPT#: [id number] DC DATE:12/22/18 STATUS: DIS IN [facility] [address] [place] [address] END OF REPORT
--- NOTE | 2018-12-28 16:41 | EC ---
PATIENT:TEX PRADO DATE OF SERVICE: 12/20/18 SEX: F MEDICAL RECORD: [id number] DATE OF : 33 LOCATION:D.M2 D.213 AGE OF PATIENT: 83 ADMISSION DATE: 12/21/18 REFERRING PHYSICIAN: INTERPRETING PHYSICIAN: TERRIE LUNA MD ECHOCARDIOGRAM REPORT ECHO CHARGES 4 ECHO COMPLETE Date: 12/21/18 CLINICAL DIAGNOSIS: PRE SYNCOPE HX OF CABG/LECA/RHEUMATIC FEVER ECHOCARDIOGRAPHIC MEASUREMENTS (adult normal given) AC root (d.<3.7cm) 3.4 cm LV Septum d (<1.2 cm> 1.6 cm Valve Excursion 1.6 cm LV Septum (systole) 1.8 cm Left Atria (s.<4.0cm> 4.4 cm LVPW d(<1.2cm) 1.6 cm RV (d.<2.3cm) 4.3 cm LVPW (sytole) 1.7 cm LV diastole(<5.6CM) 5.4 cm MV E-F(>70mm/sec) cm LV systole 3.8 cm LVOT Diameter 1.9 cm MV exc.(>10mm) 1.6 cm Est.ejection fraction (50-75%) % DOPPLER: LVIT cm/sec A 104 cm/sec E 161 cm/sec LA cm/sec RVSP 22 mmHg LVOT 106 cm/sec AOP1/2T m/s Asc. Ao 128 cm/sec RVOT cm/sec RA cm/sec PA cm/sec AV Gradient Peak 6.51 mmHg AV Mean 3.32 mmHg AV Area cm MV Gradient Peak 16.19mmHg MV Mean 4.37 mmHg MV Area cm COMMENTS: Chief Dispatcher Service: Martha MANCINI Referral Nurse: 1 Dr. Luna TAPE# PACS Pericardial Effusion N DATE OF SERVICE: 12/21/2018 FINDINGS: 1. Left ventricular chamber size is within normal limits. Left ventricular systolic function is normal. Overall ejection fraction estimated at 55%. 2. Left atrium is enlarged at 4.4 cm. Right atrium and right ventricular chamber sizes are as well mildly dilated. 3. Valvular structures have normal structure and motion. 4. Doppler interrogation reveals mild mitral regurgitation, no other valvular insufficiency or stenosis. Pulmonary systolic pressure is estimated at 22 mmHg. ECHOCARDIOGRAM REPORT [id number] IRONS,TEX ALBARO 5. No evidence of pericardial effusion or left ventricular thrombus. TRANSINT:[id number] Voice Confirmation ID: [id number] DOCUMENT ID: [id number] TERRIE LUNA MD at 1641 CC: [id number] DICTATION DATE: 12/21/18 1452 FURNACE SETTER: 12/21/18 1604 DIS IN 12/22/18 [id number] [place] [address]
--- NOTE | 2018-12-28 16:41 | CN ---
PATIENT NAME:TEX CORONA MEDICAL RECORD: [id number] : 33 LOCATION:D.M2 D.2130 ADMIT DATE: 12/21/18 ACCOUNT: [id number] CONSULTING PHYSICIAN: TERRIE CERVANTES MD REFERRING PHYSICIAN: LYSSA BUCKLEY MD DATE OF CONSULTATION: 12/21/2018 DIAGNOSES: 1. Nausea and vomiting. 2. Hypertension. 3. Hyperlipidemia. 4. Paroxysmal atrial fibrillation. 5. Abnormal ECG, partial right bundle-branch block. 6. Coronary artery disease. 7. Previous percutaneous transluminal coronary angioplasty stent. HISTORY OF PRESENT ILLNESS: Mrs. Corona is well known to us with a past history of coronary artery disease and past history of previous PTCA stent 12/05/2018. She has been stable from the standpoint of ischemic heart disease with no chest pain, no chest discomfort. Her EKG is mildly abnormal with a partial right bundle-branch block, but this has been stable and unchanged. She has no ST-T abnormalities. She presents after nausea, vomiting with hypertensive emergency. Her systolic blood pressure was around 200. She took an extra Norvasc at home. She is as well on losartan and metoprolol. Her systolic blood pressure is in the 140s now. She is not having any further nausea or vomiting. She has a history of atrial fibrillation on Tikosyn. She has maintained sinus rhythm and has had no arrhythmias. PHYSICAL EXAMINATION: GENERAL APPEARANCE: Well-nourished, well-developed, appears stated age. Level of distress, comfortable. PSYCHIATRIC: Mental status, alert, normal affect. Orientation, oriented to time, place and person. EYES: Lids and conjunctiva, noninjected. No discharge, no pallor. ENT: Lips, teeth, gums, normal dentition. Oropharynx, no cyanosis, no pallor. NECK: Carotid arteries, bilateral normal upstroke, no bruits, no thrills. JUGULAR VEINS: No jugular venous pressure or distention. CERVICAL LYMPH NODES: Nontender, nonenlarged. THYROID: Not enlarged. Nontender. No nodules. LUNGS: Respiratory effort, unlabored. CHEST: Normal curvature. No thoracic deformity. No chest wall tenderness. Percussion, resonant. Auscultation, clear. No wheezes, no rales, no rhonchi. CARDIOVASCULAR: Precordial exam, nondisplaced. No heaves or pericardial thrills. Rate and rhythm, regular. Heart sounds, normal S1, normal S2. No S3, no gallop, no rub. Systolic murmur, not heard. Diastolic murmur, not heard. EXTREMITIES: No cyanosis, no edema. Peripheral pulses, full and equal in all extremities, except as noted. No bruits appreciated. ABDOMEN: Soft, nondistended. Normal aorta. No bruit. Nontender. No masses. Liver, nontender, no hepatomegaly. Spleen, nontender, no splenomegaly. MUSCULOSKELETAL: No joint tenderness. No joint swelling. No erythema. NEUROLOGICAL: Normal gait, normal strength, normal tone. SKIN: Warm and dry. OVERALL IMPRESSION: Hypertension that is definitely not well controlled. She is on 50 mg of losartan. The easiest thing will be to increase her losartan to CONSULT REPORT [id number] TEX CORONA 100 mg, continue her metoprolol and Norvasc. We will follow up as an outpatient. Continue the Tikosyn for the atrial fibrillation control. TRANSINT:[id number] Voice Confirmation ID: [id number] DOCUMENT ID: [id number] TERRIE CERVANTES MD at 1641 CC: [id number] DICTATION DATE: 12/21/18 1408 PARTS ASSEMBLER: 12/21/18 1425 DIS IN 12/22/18 [id number] [place] [address]
== END 2018-12-22 11:02 | disposition home or self-care (01) | DRG 690 ==
LOC: D.ER 16:32 → D.EDHOLD 19:53 → OBSVTIME 19:53 → D.M2 19:53
PROVIDERS: Emergency Medicine; Family Medicine; Family Medicine Adult Medicine; ADMIT Family Medicine; ATTEND Family Medicine
DX: N39.0 Urinary tract infection, site not specified (principal); I16.1 Hypertensive emergency; R55 Syncope and collapse; Z86.73 Personal history of transient ischemic attack (TIA), and cerebral infarction without residual deficits; E03.9 Hypothyroidism, unspecified; I25.10 Atherosclerotic heart disease of native coronary artery without angina pectoris; E78.5 Hyperlipidemia, unspecified; I48.0 Paroxysmal atrial fibrillation; I45.10 Unspecified right bundle-branch block; R94.31 Abnormal electrocardiogram [ECG] [EKG]; M06.9 Rheumatoid arthritis, unspecified; K59.00 Constipation, unspecified

== ENCOUNTER → 2019-05-28 12:15 | Outpatient (CLI) | payer MEDICARE, BC ==
[2018-12-21 13:04] VITALS: BMI 34.7
[~2019-05-28 12:15] MED LIST changes: +LEVOXYL137 MCG PO; +LIPITOR40 MG PO; +OMNICEF300 MG PO; +PRADAXA150 MG PO
== END | disposition home or self-care (01) ==
LOC: D.US 12:15
PROVIDERS: ATTEND Thoracic Surgery (Cardiothoracic Vascular Surgery)
DX: I65.23 Occlusion and stenosis of bilateral carotid arteries (principal)

== ENCOUNTER → 2019-10-28 19:52 | Outpatient (CLI) | payer MEDICARE, BC ==
[2018-12-21 13:04] VITALS: BMI 34.7
== END | disposition home or self-care (01) ==
LOC: D.LABREF 19:52
PROVIDERS: ATTEND Urology
DX: N39.0 Urinary tract infection, site not specified (principal)

== ENCOUNTER → 2019-10-30 10:28 | Outpatient (CLI) | payer MEDICARE, BC ==
[2018-12-21 13:04] VITALS: BMI 34.7
== END | disposition home or self-care (01) ==
LOC: D.US 10:28
PROVIDERS: ATTEND Internal Medicine Gastroenterology
DX: R10.12 Left upper quadrant pain (principal); K86.2 Cyst of pancreas

== ENCOUNTER 2020-03-20 06:09 | Day surgery (SDC) | payer MEDICARE, BC ==
[~2020-03-20] VITALS: Ht 167.6 cm; Wt 105.5 kg
[2020-03-20 06:41] LABS: HEMATOCRIT 28.1 % (36.0-48.0); HEMOGLOBIN 9.3 g/dL (12-16); MCHC 33.1 g/dL (31.0-37.0); MCV 96.6 fL (80.0-100.0); MEAN PLATELET VOLUME 9.1 fL (7.4-10.4); RBC 2.91 10x6/uL (4.00-5.40); RDW 15.9 % (11.5-14.5); WBC 12.4 10x3/uL (4.8-10.8)
[2020-03-20] MEDS ORDERED: BETAPACE 80 MG80 MG PO (07:15)
[2020-03-20 07:16] VITALS: BP 142/53; Ht 167.6 cm; Wt 105.5 kg
--- NOTE | 2020-03-20 09:14 | NUR ---
IV D/C'D WITH CANNULA INTACT. DISCHARGE INSTRUCTIONS GIVEN DISHCARGED WITHOUT COMPLAINT
--- NOTE | 2020-03-20 15:58 | OP ---
PATIENT NAME: TEX PRADO MEDICAL RECORD: [id number] :33 LOCATION:SHAMIR ADMISSION DATE: SURGEON: ANDREA FRANCIS DO DATE OF OPERATION: 03/20/2020 PROCEDURE: EGD with biopsies. INDICATIONS FOR PROCEDURE: Left upper quadrant abdominal pain, macrocytic anemia, occult blood in stools. SCOPE: Olympus video gastroscope. MEDICATIONS: Propofol 150 mg IV per anesthesia. ESTIMATED BLOOD LOSS: Minimal. COMPLICATIONS: None. FINDINGS: Informed consent was given. The patient was made comfortable with the above medication. After reaching an adequate level of sedation by slow IV push, the patient was placed on her left side. The endoscope was advanced under direct visualization through the mouth to the second portion of the duodenum with ease. The entire esophagus appeared normal. At the GE junction, there were minor changes consistent with LA class A reflux-induced esophagitis. Cold forcep biopsies were taken from the mid esophagus to rule out the presence of eosinophils. The endoscope was advanced beyond the GE junction into the stomach and retroflexed to view the cardia and fundus, which appeared normal. Throughout the body of the stomach as well as the antrum and prepyloric region, there was some atrophy of the mucosa and some granularity consistent with mild chronic gastritis changes. Cold forcep biopsies were taken from the antrum and incisura to submit for histopathology and to rule out the presence of H. pylori. The endoscope was advanced beyond the pylorus into the duodenum, which appeared normal to the second portion. Cold forcep biopsies were taken to submit for histopathology. The endoscope was withdrawn from the patient. The patient tolerated the procedure well and there were no complications. IMPRESSION: 1. LA class A reflux-induced esophagitis. 2. Mild chronic gastritis changes in the stomach. PLAN AND RECOMMENDATIONS: 1. Discharge home when recovery parameters are met. 2. Follow up biopsy specimen results. 3. GERD diet and reflux precautions. 4. Continue current medications. 5. Trial of Pepcid or famotidine 40 mg daily for 30 days to see if this changes symptoms. 6. Follow up in GI clinic in 4-6 weeks. ____ severe and I do not hear any red flag symptoms at this point the warrant other test currently. TRANSINT:[id number] Voice Confirmation ID: [id number] DOCUMENT ID: [id number] OPERATIVE REPORT [id number] IRONTEX Borges NATHAN A DO at 1558 CC: [id number] DICTATION DATE: 03/20/20817 STRINGED INSTRUMENT REPAIRER: 03/20/20 0949 [facility] 03/20/20 [facility] [address] [place] [address]
== END 2020-03-20 09:10 | disposition home or self-care (01) ==
LOC: D.OPS 06:09
PROVIDERS: Anesthesiology; ATTEND Internal Medicine Gastroenterology
DX: R10.12 Left upper quadrant pain (principal); D50.9 Iron deficiency anemia, unspecified; R19.5 Other fecal abnormalities

== ENCOUNTER 2020-03-20 15:35 | Inpatient (IN) | payer MEDICARE, BC ==
[~2020-03-20] VITALS: Ht 167.6 cm; Wt 107.0 kg
[~2020-03-20 15:35] MED LIST changes: +BETAPACE 80 MG80 MG PO
[2020-03-20 17:14] LABS: BASOPHILS 0.1 % (0-2); EOSINOPHILS 0.1 % (0-7); HEMATOCRIT 28.5 % (36.0-48.0); HEMOGLOBIN 9.4 g/dL (12-16); IMMATURE GRANULOCYTES 0.6 % (0-5); MCH 31.8 pg (26.0-34.0); MCV 96.3 fL (80.0-100.0); MEAN PLATELET VOLUME 9.5 fL (7.4-10.4); MONOCYTES 7.8 % (2-11); NEUTROPHILS 84.4 % (40-80); PLATELET COUNT 239 10x3/uL (130-400); RBC 2.96 10x6/uL (4.00-5.40); RDW 15.9 % (11.5-14.5); WBC 14.4 10x3/uL (4.8-10.8)
[2020-03-20 17:20] LABS: APTT 41.2 SECONDS (22.8-39.4); CALC OSMOLALITY 263 mosm/kg (275-300); CALCIUM 9.5 mg/dL (8.5-10.1); CARBON DIOXIDE 29.1 mmol/L (21.0-32.0); CHLORIDE - SERUM 97 mmol/L (98-107); GLUCOSE 115 mg/dL (74-106); INR 1.21 (0.85-1.17); POTASSIUM - SERUM 4.7 mmol/L (3.5-5.1); PROTIME 15.2 SECONDS (11.6-15.0); SODIUM 130 mmol/L (136-145); UREA NITROGEN 19 mg/dL (7-18); eGFR NON AFRICAN AMERICAN 56 mL/min (90-120)
[2020-03-20 17:38] LABS: ALBUMIN 3.7 g/dL (3.4-5.0); ALKALINE PHOSPHATASE 58 U/L (30-120); ALT (SGPT) 21 U/L (10-68); BILIRUBIN - TOTAL 1.02 mg/dL (0.2-1.3); CKMB 0.7 U/L (0.0-3.6); CREATINE KINASE 207 UL (21-215); PRO BNP 3970 pg/mL (0-450); PROTEIN - SERUM 7.3 g/dL (6.4-8.2)
[2020-03-20 17:40] LABS: TROPONIN-I < 0.017 ng/mL (0.000-0.060)
[2020-03-21 00:23] VITALS: BP 108/50
[2020-03-21 01:23] VITALS: BP 108/56
[2020-03-21 04:12] VITALS: BP 128/57
--- NOTE | 2020-03-21 04:18 | NUR ---
PATIENT IS SLEEPING IN BED. SHE IS UP WITH ASSIST TO BATHROOM. SHE IS ON 2 LITERS NASAL CANULA. WE WILL CONTINUE TO MONITOR HER RESPIRATORY STATUS.
[2020-03-21 05:52] LABS: BASOPHILS 0 % (0-2); EOSINOPHILS 0 % (0-7); HEMATOCRIT 25.3 % (36.0-48.0); HEMOGLOBIN 8.3 g/dL (12-16); IMMATURE GRANULOCYTES 0.3 % (0-5); LYMPHOCYTES 7.2 % (15-50); MCH 31.4 pg (26.0-34.0); MCHC 32.8 g/dL (31.0-37.0); MCV 95.8 fL (80.0-100.0); MEAN PLATELET VOLUME 9.5 fL (7.4-10.4); MONOCYTES 3.3 % (2-11); NEUTROPHILS 89.2 % (40-80); PLATELET COUNT 207 10x3/uL (130-400); RBC 2.64 10x6/uL (4.00-5.40); RDW 16.1 % (11.5-14.5)
[2020-03-21 05:57] LABS: WBC 8.8 10x3/uL (4.8-10.8)
[2020-03-21 06:11] LABS: ANION GAP 11.9 mmol/L (8-16); CALCIUM 9.3 mg/dL (8.5-10.1); CARBON DIOXIDE 25.7 mmol/L (21.0-32.0); CREATININE - SERUM 1.1 mg/dL (0.6-1.3); MAGNESIUM - SERUM 1.9 mg/dL (1.8-2.4); PHOSPHOROUS 2.6 mg/dL (2.5-4.9); POTASSIUM - SERUM 4.6 mmol/L (3.5-5.1)
[2020-03-21 07:47] VITALS: BP 127/60
--- NOTE | 2020-03-21 07:55 | NUR ---
AM MEDS GIVEN AT THIS TIME. PT A/O X4, RESP EVEN AND NONLABORED ON 2L NC. RT FA IV INFUSING NS AT 50CC/HR. HEART MONITOR SHOWING SR WITH RATE OF 74. PT DENIES ANY NEEDS AT THIS TIME. CALL LIGHT IN REACH, EUNICE MAYNARD, WILL CONTINUE TO MONITOR.
[2020-03-21 11:43] VITALS: Ht 167.6 cm; Wt 107.0 kg
[2020-03-21 14:39] LABS: HEMATOCRIT 24.8 % (36.0-48.0); HEMOGLOBIN 8.1 g/dL (12-16)
[2020-03-21 15:30] VITALS: BP 92/75
--- NOTE | 2020-03-21 16:30 | NUR ---
I have reviewed this patient and I concur with the Shift Assessment completed by the Licensed Practical Nurse today this shift.
--- NOTE | 2020-03-21 16:55 | NUR ---
PT AWAKE AND ORIENTED, TRANSFERED TO ROOM VIA WHEELCAHIR WITHOUT COMPLICATIONS. AMBULATES UNASSISTED, I/V POLE PLACED STRATEGICALLY FOR MINIMAL AMBULATION INTERFERENCE. DAUGHTER AT BEDSIDE. CL IN REACH, SRX2.
--- NOTE | 2020-03-21 19:30 | NUR ---
PT IN BED, AAO X 3, RESP EVEN AND UNLABORED. NO DISTRESS NOTED,CL IN REACH, SR UP X 2.
[2020-03-21 20:00] VITALS: BP 143/59
--- NOTE | 2020-03-22 00:26 | NUR ---
I have reviewed this patient and I concur with the Shift Assessment completed by the Licensed Practical Nurse today this shift.
[2020-03-22 04:00] VITALS: BP 172/61
[2020-03-22 04:50] LABS: BASOPHILS 0 % (0-2); EOSINOPHILS 0 % (0-7); HEMATOCRIT 23.9 % (36.0-48.0); HEMOGLOBIN 7.7 g/dL (12-16); IMMATURE GRANULOCYTES 0.4 % (0-5); LYMPHOCYTES 6.3 % (15-50); MCH 30.9 pg (26.0-34.0); MCHC 32.2 g/dL (31.0-37.0); MEAN PLATELET VOLUME 9.6 fL (7.4-10.4); MONOCYTES 6.7 % (2-11); NEUTROPHILS 86.6 % (40-80); PLATELET COUNT 209 10x3/uL (130-400); RBC 2.49 10x6/uL (4.00-5.40); RDW 16.1 % (11.5-14.5)
[2020-03-22 05:00] LABS: WBC 12.6 10x3/uL (4.8-10.8)
[2020-03-22 05:18] LABS: ANION GAP 13.6 mmol/L (8-16); CALCIUM 8.8 mg/dL (8.5-10.1); CARBON DIOXIDE 24.1 mmol/L (21.0-32.0); PHOSPHOROUS 3.1 mg/dL (2.5-4.9); POTASSIUM - SERUM 4.7 mmol/L (3.5-5.1)
--- NOTE | 2020-03-22 07:20 | NUR ---
RECIEVE REPORT. ALERT AND ORIENTED X4. RESTING IN BED. CONTINUE PLAN OF CARE AND SAFETY PRECAUTIONS.
[2020-03-22 09:38] VITALS: BP 151/64
[2020-03-22] MEDS ORDERED: OMNICEF300 MG PO (10:14)
[2020-03-22] MEDS ORDERED: AZITHROMYCIN500 MG PO (10:14)
--- NOTE | 2020-03-22 14:54 | NUR ---
ALERT AND ORIENTED X4. DC LT FA IV TIP INTACT. DISCHARGE INSTRUCTIONS GIVEN VERBALLY AND WRITTEN. DISCHARGE PAPERS SIGNED ON CHART. WALK TEST PASSED. NO HOME O2 NEEDED. ESCORT TO RIDE VIA WHEELCHAIR. REMAINS FREE FROM INJURY.
--- NOTE | 2020-03-22 19:30 | MORECARE ---
CASE MANAGEMENT DISCHARGE SUMMARY PATIENT: TEX PRADO UNIT: [id number] ADM DATE: 03/20/20 AGE: 84 : 34 SEX: F ROOM/BED: D.2106 AUTHOR: SMITHA NICHOLSON PHYSICIAN: REFERRING PHYSICIAN: TEZ BEARD MD DATE OF SERVICE: 03/22/20 Discharge Plan Patient Name: TEX PRADO [facility] [facility] 1935 Planned Disposition: Home Anticipated Discharge Date: Discharge Date: 03/22/2020 Expected LOS: Initial Reviewer: [email or web address] Initial Review Date: 03/20/2020 Generated: 03/22/20 8:30 pm External Providers External Provider: [email or web address] Next Contact Date: Service Request Date: Service Type: Resolution: Reviewer: Comments: Patient Name: TEX PRADO Page 16160 at 1930 All edits/amendments must be made on the electronic document DICTATION DATE: 03/22/201929 BACK TENDER PULP DRIER: TREVOR 03/22/201929 RPT#: [id number] DC DATE:03/22/20 STATUS: DIS IN [facility] [address] [place] [address] END OF REPORT
--- NOTE | 2020-03-22 19:37 | MORECARE ---
CASE MANAGEMENT DISCHARGE SUMMARY PATIENT: TEX PRADO UNIT: [id number] ADM DATE: 03/20/20 AGE: 84 : 34 SEX: F ROOM/BED: D.2109 AUTHOR: SMITHA NICHOLSON PHYSICIAN: REFERRING PHYSICIAN: TEZ BEARD MD DATE OF SERVICE: 03/22/20 Discharge Plan Patient Name: TEX PRADO [facility] : 1935 Planned Disposition: Home Anticipated Discharge Date: Discharge Date: 03/22/2020 Expected LOS: Initial Reviewer: [email or web address] Initial Review Date: 03/20/2020 Generated: 03/22/20 8:36 pm DCPIA - Discharge Planning Initial Assessment Updated by [email or web address]: Paris Dumont on 03/22/20 7:32 pm * Is the patient Alert and Oriented? Yes * How many steps to enter\exit or inside your home? * PCP NILTON ACEVES ([facility]) * Pharmacy [facility] * Preadmission Environment Home Alone * ADLs Independent * Equipment Walker * List name and contact numbers for known caregivers / representatives who currently or will assist patient after discharge: JILLIAN TYRONE - DAUGHTER- [phone] JAN / CAPRI PRADO - SON/ DIL -[phone], * Verbal permission to speak to the caregivers and representatives has been obtained from the patient. Yes * Community resources currently utilized None * Additional services required to return to the preadmission environment? No * Can the patient safely return to the preadmission environment? Yes * Has this patient been hospitalized within the prior 30 days at any hospital? No Last DP export: 03/22/20 6:30 pm Patient Name: TEX PRADO Page 34872 at 1937 All edits/amendments must be made on the electronic document DICTATION DATE: 03/22/201935 PRICING ANALYST: TREVOR 03/22/201935 RPT#: [id number] DC DATE:03/22/20 STATUS: DIS IN [facility] [address] [place] [address] END OF REPORT
--- NOTE | 2020-03-22 19:43 | MORECARE ---
CASE MANAGEMENT DISCHARGE SUMMARY PATIENT: TEX PRADO UNIT: [id number] ADM DATE: 03/20/20 AGE: 84 : 34 SEX: F ROOM/BED: D.9685 AUTHOR: BHARAT,DOC PHYSICIAN: REFERRING PHYSICIAN: TEZ BEARD MD DATE OF SERVICE: 03/22/20 Discharge Plan Patient Name: TEX PRADO Facility: [facility]:[place] : 1935 Planned Disposition: Home Anticipated Discharge Date: Discharge Date: 03/22/2020 Expected LOS: Initial Reviewer: [id number] Initial Review Date: 03/20/2020 Generated: 03/22/20 8:43 pm Comments DCP- Discharge Planning Updated by [email or web address]: Paris Dumont on 03/22/20 6:[address] Patient Name: TEX PRADO Admission Status: ER Accout number: [id number] Admission Date: 03-20-2020 : 1935 Admission Diagnosis: Attending: TEZ BEARD Current LOS: 2 Anticipated DC Date: Planned Disposition: Home Primary Insurance: MEDICARE A & B Discharge Planning Comments: CM met with patient to complete initial dc planning assessment. CM educated patient on the CM role and verbal consent given by patient to complete assessment. Patient lives at home alone. Patient is independent. At discharge patient plans to return home and feels this is a safe discharge. CM discussed availability of home health, rehab services, and medical equipment. Patient and daughter in law would like . [facility]ILA for [facility]. Patient is currently on 02 @ 2L. CM will have RT to [facility] for home 02 needs (walk test) [facility] for [facility] if 02 needed. CM notified that patient doesn't qualify for home 02. Sat @ 93%. Patient will have family to transport home. Patient denied known discharge needs at this time. CM will continue to follow and will assist as needed with dc plans/needs. CM contacted [facility] and they will out to [facility] and admit on Monday. CM gave patient phone number to patient in case she should need them before Monday. CM faxed records and order. Application Integration Engineer: Paris Dumont DCPIA - Discharge Planning Initial Assessment Updated by [id number]: Paris Dumont on 03/22/20 7:32 pm * Is the patient Alert and Oriented? Yes * How many steps to enter\exit or inside your home? * PCP NILTON ACEVES ([facility]) * Pharmacy [facility] * Preadmission Environment Home Alone * ADLs Independent * Equipment Walker * List name and contact numbers for known caregivers / representatives who currently or will assist patient after discharge: JILLIAN HANSEN - DAUGHTER- [phone] JAN / CAPRI PRADO - SON/ DIL -[phone], * Verbal permission to speak to the caregivers and representatives has been obtained from the patient. Yes * Community resources currently utilized None * Additional services required to return to the preadmission environment? No * Can the patient safely return to the preadmission environment? Yes * Has this patient been hospitalized within the prior 30 days at any hospital? No Coverage Notice Reviewer: [email or web address] - Paris Dumont Notice Issued Date-Time: 03/22/2020 11:00 Notice Type: Patient Choice Letter Notice Delivered To: Patient Relationship to Patient: Commercial Accountant Name: Delivery Method: HAND - Hand Delivered Sahara Days: Prior Verbal Notification: Yes Recipient Understood Notice: Yes Recipient Signature: Mickey Stuart Note Co-signed by Attending: Coverage Notice Comment: [facility] PATIENT Last DP export: 03/22/20 6:37 pm Patient Name: TEX PRADO Page [id number] at 1943 All edits/amendments must be made on the electronic document DICTATION DATE: 03/22/201942 CTRS: TREVOR 03/22/201942 RPT#: [id number] DC DATE:03/22/20 STATUS: DIS IN [facility] [address] [place] [address] END OF REPORT
== END 2020-03-22 14:56 | disposition home health service (06) | DRG 871 ==
LOC: D.ER 15:35 → D.M2 18:42
PROVIDERS: Emergency Medicine; Family Medicine; ADMIT Family Medicine; ATTEND Family Medicine
DX: A41.9 Sepsis, unspecified organism (principal); J18.9 Pneumonia, unspecified organism; E87.1 Hypo-osmolality and hyponatremia; I48.20 Chronic atrial fibrillation, unspecified; I50.20 Unspecified systolic (congestive) heart failure; D64.9 Anemia, unspecified; E78.5 Hyperlipidemia, unspecified; I25.10 Atherosclerotic heart disease of native coronary artery without angina pectoris; Z79.01 Long term (current) use of anticoagulants; M19.90 Unspecified osteoarthritis, unspecified site; I11.0 Hypertensive heart disease with heart failure

== ENCOUNTER → 2020-04-01 20:40 | Outpatient (CLI) | payer MEDICARE, BC ==
[2020-03-21 11:43] VITALS: BMI 38.0
[~2020-04-01 20:40] MED LIST changes: +AZITHROMYCIN500 MG PO
== END | disposition home or self-care (01) ==
LOC: D.CT 01-06 09:30 → D.LABREF 20:40
PROVIDERS: ATTEND Internal Medicine Medical Oncology
DX: D64.9 Anemia, unspecified (principal); R82.90 Unspecified abnormal findings in urine

== ENCOUNTER 2020-06-01 16:41 | Inpatient (IN) | payer MEDICARE, BC ==
[~2020-06-01] VITALS: Ht 167.6 cm; Wt 108.4 kg
[2020-06-01 17:34] LABS: BASOPHILS 0.4 % (0-2); EOSINOPHILS 0.9 % (0-7); HEMATOCRIT 27.5 % (36.0-48.0); HEMOGLOBIN 9.1 g/dL (12-16); IMMATURE GRANULOCYTES 0.4 % (0-5); LYMPHOCYTES 9.9 % (15-50); MCH 31.3 pg (26.0-34.0); MCHC 33.1 g/dL (31.0-37.0); MCV 94.5 fL (80.0-100.0); MEAN PLATELET VOLUME 9.4 fL (7.4-10.4); MONOCYTES 8.1 % (2-11); NEUTROPHILS 80.3 % (40-80); PLATELET COUNT 181 10x3/uL (130-400); RBC 2.91 10x6/uL (4.00-5.40); RDW 16.2 % (11.5-14.5)
[2020-06-01] MEDS ORDERED: LASIX40 MG PO (17:40)
[2020-06-01 17:49] LABS: INR 1.69 (0.85-1.17); PROTIME 19.7 SECONDS (11.6-15.0)
[2020-06-01 17:50] LABS: APTT 79.1 SECONDS (22.8-39.4)
[2020-06-01 18:01] LABS: CALC OSMOLALITY 258 mosm/kg (275-300); CALCIUM 9.3 mg/dL (8.5-10.1); CARBON DIOXIDE 25.2 mmol/L (21.0-32.0); CHLORIDE - SERUM 94 mmol/L (98-107); CREATININE - SERUM 0.9 mg/dL (0.6-1.3); GLUCOSE 103 mg/dL (74-106); POTASSIUM - SERUM 4.6 mmol/L (3.5-5.1); SODIUM 128 mmol/L (136-145); UREA NITROGEN 17 mg/dL (7-18); eGFR NON AFRICAN AMERICAN 63 mL/min (90-120)
[2020-06-01 18:25] LABS: ALBUMIN 3.9 g/dL (3.4-5.0); ALKALINE PHOSPHATASE 50 U/L (30-120); ALT (SGPT) 14 U/L (10-68); BILIRUBIN - TOTAL 1.01 mg/dL (0.2-1.3); C-REACTIVE PROTEIN 1.6 mg/dL (0.0-0.9); CREATINE KINASE 115 UL (21-215); PRO BNP 2313 pg/mL (0-450); PROTEIN - SERUM 7.4 g/dL (6.4-8.2); TROPONIN-I 0.023 ng/mL (0.000-0.060)
[2020-06-01 18:28] LABS: CKMB 0.9 U/L (0.0-3.6)
--- NOTE | 2020-06-01 22:50 | NUR ---
RECEIVED FROM ER, A&O X4, IV-20G. LAC, PLACED ON [id number]-12, MEDS AND HISTORY COMPLETE, BED IS LOW, SRX2, CALL LIGHT IN REACH, WILL CONTINUE PLAN OF CARE
[2020-06-01 23:15] VITALS: BP 144/44
[2020-06-01 23:55] LABS: CKMB 0.6 U/L (0.0-3.6)
[2020-06-02 00:02] LABS: TROPONIN-I 0.126 ng/mL (0.000-0.060)
[2020-06-02 00:07] LABS: CREATINE KINASE 121 UL (21-215)
[2020-06-02 03:03] VITALS: BP 140/53
[2020-06-02 05:49] LABS: BASOPHILS 0.5 % (0-2); EOSINOPHILS 1.9 % (0-7); HEMATOCRIT 26.9 % (36.0-48.0); HEMOGLOBIN 8.7 g/dL (12-16); IMMATURE GRANULOCYTES 0.2 % (0-5); LYMPHOCYTES 15.7 % (15-50); MCH 31.1 pg (26.0-34.0); MCHC 32.3 g/dL (31.0-37.0); MCV 96.1 fL (80.0-100.0); MEAN PLATELET VOLUME 9.4 fL (7.4-10.4); MONOCYTES 11.4 % (2-11); NEUTROPHILS 70.3 % (40-80); PLATELET COUNT 182 10x3/uL (130-400); RDW 16.3 % (11.5-14.5)
[2020-06-02 05:54] LABS: WBC 5.9 10x3/uL (4.8-10.8)
[2020-06-02 06:11] VITALS: BP 153/56
[2020-06-02 06:31] LABS: ALBUMIN 3.6 g/dL (3.4-5.0); ALKALINE PHOSPHATASE 46 U/L (30-120); ALT (SGPT) 13 U/L (10-68); BILIRUBIN - TOTAL 0.83 mg/dL (0.2-1.3); CALC OSMOLALITY 264 mosm/kg (275-300); CALCIUM 9.2 mg/dL (8.5-10.1); CARBON DIOXIDE 31.5 mmol/L (21.0-32.0); CHLORIDE - SERUM 95 mmol/L (98-107); CKMB 0.9 U/L (0.0-3.6); CREATINE KINASE 111 UL (21-215); CREATININE - SERUM 0.9 mg/dL (0.6-1.3); GLUCOSE 93 mg/dL (74-106); MAGNESIUM - SERUM 1.9 mg/dL (1.8-2.4); PHOSPHOROUS 4.2 mg/dL (2.5-4.9); PROTEIN - SERUM 6.7 g/dL (6.4-8.2); SODIUM 131 mmol/L (136-145); TROPONIN-I 0.021 ng/mL (0.000-0.060); UREA NITROGEN 17 mg/dL (7-18); eGFR NON AFRICAN AMERICAN 63 mL/min (90-120)
[2020-06-02 07:00] VITALS: BP 147/57
[2020-06-02 10:30] VITALS: BP 125/51
[2020-06-02 11:45] LABS: CREATINE KINASE 127 UL (21-215)
[2020-06-02 11:49] LABS: TROPONIN-I < 0.017 ng/mL (0.000-0.060)
[2020-06-02 12:51] VITALS: Ht 167.6 cm; Wt 108.4 kg
[2020-06-02 15:00] VITALS: BP 146/65
--- NOTE | 2020-06-02 19:00 | NUR ---
REPORT RECEIVED, WILL CONTINUE POC. PATIENT IS AAOX4, SITTING UP IN BED. NO S/S OF DISTRESS OBSERVED, RR EVEN AND UNLABORED ON 3L O2 VIA NC. PIV TO LT AC, SL. PATIENT DENIES NEEDS AT THIS TIME. CL IN REACH, BED LOCKED AND LOWERED. WILL CTM.
[2020-06-02 20:00] VITALS: BP 144/50
--- NOTE | 2020-06-02 20:35 | NUR ---
ADMINISTERED HS MEDS. ICE WATER PROVIDED. PATIENT DENIES FURTHER NEEDS AT THIS TIME.
[2020-06-03] VITALS: BP 131/61
[2020-06-03 04:00] VITALS: BP 151/66
[2020-06-03 06:24] LABS: BASOPHILS 0.5 % (0-2); EOSINOPHILS 2.6 % (0-7); HEMATOCRIT 25.3 % (36.0-48.0); HEMOGLOBIN 8.1 g/dL (12-16); IMMATURE GRANULOCYTES 0.3 % (0-5); MCH 30.8 pg (26.0-34.0); MCV 96.2 fL (80.0-100.0); MEAN PLATELET VOLUME 9.5 fL (7.4-10.4); MONOCYTES 10.9 % (2-11); NEUTROPHILS 72.7 % (40-80); PLATELET COUNT 189 10x3/uL (130-400); RBC 2.63 10x6/uL (4.00-5.40); RDW 16.4 % (11.5-14.5); WBC 6.2 10x3/uL (4.8-10.8)
[2020-06-03 07:03] LABS: ANION GAP 10.2 mmol/L (8-16); CALCIUM 9.1 mg/dL (8.5-10.1); CARBON DIOXIDE 30.9 mmol/L (21.0-32.0); CREATININE - SERUM 0.9 mg/dL (0.6-1.3); PHOSPHOROUS 4.3 mg/dL (2.5-4.9); POTASSIUM - SERUM 4.1 mmol/L (3.5-5.1)
[2020-06-03 07:29] VITALS: BP 139/50
--- NOTE | 2020-06-03 08:21 | NUR ---
ROUNDING DONE WITH PATIENT STANDING AT SINK. GLASSES ON. 2L PER NC ON. COMPLAINTS OF NOSE BLEEDING SLIGHTY WILL PLACE HUMDIFIED OXYGEN FOR HER. LEFT AC SEEN WITH SALINE LOCK. ON HEART MONITOR. ON EP, LABS ARE GOOD. NEEDING STOOL SAMPLE.
[2020-06-03 08:33] LABS: % SATURATION 17 % (15-55); IRON 46 ug/dl (35-150); TOTAL IRON BIND CAPACITY 261 ug/dl (260-445); UNSAT IRON BIND CAPACITY 215 ug/dl (150-375)
--- NOTE | 2020-06-03 11:07 | NUR ---
IS IS GIVEN TO PATIENT AND INSTRUCTED IN USE. GETS IS TO 1000 ML.
[2020-06-03 12:21] VITALS: BP 133/50
--- NOTE | 2020-06-03 15:25 | NUR ---
SPOKE WITH DR. LANDAVERDE REGARDING THE PATIENT BEING ON PRADAXA WITH A BONE MARROW BIOPSY ORDERED. DR. LANDAVERDE GAVE ORDERS TO HOLD THE PRADAXA STARTING ON MONDAY FOR THE BONE MARROW ASPIRATION SCHEDULED FOR FRIDAY 06/08. NO BRIDGE WITH LOVENOX WAS ORDERED DUE TO THE PATIENT BEING IN SINUS RHYTHM. DR. SESAY UPDATED WITH PLAN FOR BONE MARROW ASPIRATION
[2020-06-03 15:55] VITALS: BP 157/56
--- NOTE | 2020-06-03 19:00 | NUR ---
REPORT RECEIVED, WILL CONTINUE POC. PATIENT IS AAOX4, SITTING UP IN BED. NO S/S OF DISTRESS OBSERVED, RR EVEN AND UNLABORED ON 2L O2 VIA NC. PIV TO LT AC, SL. PATIENT DENIES NEEDS AT THIS TIME. CL IN REACH, BED LOCKED AND LOWERED. WILL CTM.
[2020-06-03 20:00] VITALS: BP 119/52
--- NOTE | 2020-06-03 21:00 | NUR ---
ADMINISTERED HS MEDS WITHOUT DIFFICULTY. PATIENT STATES SHE DIDN'T EAT MUCH TODAY, NOT SATISFIED WITH WAS SHE WAS GIVEN. OFFERED SANDWICH IN WHICH SHE ACCEPTED. ICE WATER PROVIDED. PATIENT DENIES FURTHER NEEDS.
[2020-06-04 06:16] LABS: BASOPHILS 0.5 % (0-2); EOSINOPHILS 2.9 % (0-7); HEMATOCRIT 26.9 % (36.0-48.0); HEMOGLOBIN 8.6 g/dL (12-16); IMMATURE GRANULOCYTES 0.3 % (0-5); LYMPHOCYTES 12.7 % (15-50); MCH 30.9 pg (26.0-34.0); MCV 96.8 fL (80.0-100.0); MEAN PLATELET VOLUME 9.3 fL (7.4-10.4); MONOCYTES 12.2 % (2-11); NEUTROPHILS 71.4 % (40-80); PLATELET COUNT 192 10x3/uL (130-400); RBC 2.78 10x6/uL (4.00-5.40); RDW 16.3 % (11.5-14.5); WBC 6.6 10x3/uL (4.8-10.8)
[2020-06-04 06:48] LABS: ANION GAP 7.8 mmol/L (8-16); CALCIUM 9.4 mg/dL (8.5-10.1); CARBON DIOXIDE 34.5 mmol/L (21.0-32.0); CREATININE - SERUM 0.9 mg/dL (0.6-1.3); PHOSPHOROUS 4.5 mg/dL (2.5-4.9); POTASSIUM - SERUM 4.3 mmol/L (3.5-5.1)
--- NOTE | 2020-06-04 07:15 | NUR ---
PT IS RESTING IN BED WITH EYES CLOSED. RESPIRATIONS ARE EVEN AND UNLABORED. PT IS EASILY AROUSED WITH VERBAL STIMULATION. UPON AROUSAL PT IS AAO X 4. PT DENIES PRESENCE OF PAIN/N/V/DYSPNEA/DIZZINESS AT THIS TIME. PT REPORTS SLIGHT TINGLING TO BLE. BILATERAL PEDAL PULSES ARE PALP AND BLE CAP REFILL IS < 3. INCENTIVE SPIROMETER IS AT BEDSIDE AND ENCOURAGED. O2 VIA NC @ 2L. PT DENIES PRESENCE OF SOB. PIV TO LEFT AC IS SL AND FLUSHES WITHOUT DIFFICULTY. DRESSING IS CDI. BED IS IN THE LOWEST POSITION. CALL LIGHT AND BEDSIDE TABLE ARE WITHIN REACH. SIDE RAILS X 2. PT DENIES FURTHER NEEDS. WILL CONT TO MONITOR.
[2020-06-04 08:13] LABS: ERYTHROPOIETIN 14.5 mIU/mL (2.6-18.5)
[2020-06-04 09:17] VITALS: BP 146/46
--- NOTE | 2020-06-04 09:35 | NUR ---
DR THOMAS AT BEDSIDE. VERBAL ORDERS RECD FOR WALK TEST. RESPIRATORY THERAPISE NOTIFIED OF VERBAL ORDER.
[2020-06-04] MEDS ORDERED: FEXOFENADINE HC60 MG PO (09:45)
[2020-06-04] MEDS ORDERED: PRADAXA75 MG PO (09:47)
[2020-06-04] MEDS ORDERED: LISINOPRIL2.5 MG PO (09:48)
--- NOTE | 2020-06-04 11:37 | NUR ---
Nutrition Follow-up: Pt reports eating well; ate 100% of breakfast this AM. C/o constipation; reports taking Senokot PRN at home. Noted plans for bone marrow aspiration on Monday. Diet: Cardiac Wt: 239# (06/02) Last BM: 06/01 Labs noted: Na 131 Meds noted: Lasix, Protonix, electrolyte protocol -RD following.
--- NOTE | 2020-06-04 12:55 | MORECARE ---
CASE MANAGEMENT DISCHARGE SUMMARY PATIENT: TEX PRADO UNIT: [id number] ADM DATE: 06/01/20 AGE: 84 : 34 SEX: F ROOM/BED: D.2109 AUTHOR: BHARAT,DOC PHYSICIAN: REFERRING PHYSICIAN: TOMY CHUNG MD DATE OF SERVICE: 06/04/20 Discharge Plan Patient Name: TEX PRADO Facility: [facility]:[place] : 1935 Planned Disposition: Home with Home Health Anticipated Discharge Date: Discharge Date: Expected LOS: Initial Reviewer: [email or web address] Initial Review Date: 06/04/2020 Generated: 06/04/20 1:54 pm DCPIA - Discharge Planning Initial Assessment Updated by [email or web address]: Julita Del Valle on 06/04/20 12:52 pm * Is the patient Alert and Oriented? Yes * How many steps to enter\exit or inside your home? 2wrails/0 * PCP Nurys Estes with [facility] in [facility] * Pharmacy [facility] in [facility] * Preadmission Environment Home Alone * ADLs Independent * Equipment Cane Oxygen Walker * Other Equipment Rollator walker * List name and contact numbers for known caregivers / representatives who currently or will assist patient after discharge: Charissa Rae - [phone] Gwen seay Lamin Prado - Son and [facility] - [phone] * Verbal permission to speak to the caregivers and representatives has been obtained from the patient. Yes * Community resources currently utilized Home Health * Please name any agencies selected above. [facility] ([place]) * Additional services required to return to the preadmission environment? No * Can the patient safely return to the preadmission environment? Yes * Has this patient been hospitalized within the prior 30 days at any hospital? No External Providers [facility] Next Contact Date: Service Request Date: Service Type: Resolution: Reviewer: Comments: Coverage Notice Reviewer: [id number] Jennifer Del Valle Notice Issued Date-Time: 06/04/2020 12:00 Notice Type: IM Discharge Notice Notice Delivered To: Patient Relationship to Patient: Self Mortuary Beautician Name: Delivery Method: HAND - Hand Delivered Sahara Days: Prior Verbal Notification: Recipient Understood Notice: Yes Recipient Signature: Yes Med Rec Note Co-signed by Attending: Coverage Notice Comment: IMM explained, signed, given, copy placed in MR Patient Name: TEX PRADO Page 94197 at 1255 All edits/amendments must be made on the electronic document DICTATION DATE: 06/04/201253 AIRCRAFT LANDING GEAR INSPECTOR: TREVOR 06/04/20 1254 RPT#: [id number] DC DATE: STATUS: ADM IN [facility] [address] [place] [address] END OF REPORT
--- NOTE | 2020-06-04 13:04 | MORECARE ---
CASE MANAGEMENT DISCHARGE SUMMARY PATIENT: TEX PRADO UNIT: [id number] ADM DATE: 06/01/20 AGE: 84 : 34 SEX: F ROOM/BED: D.3855 AUTHOR: BHARAT,DOC PHYSICIAN: REFERRING PHYSICIAN: TOMY CHUNG MD DATE OF SERVICE: 06/04/20 Discharge Plan Patient Name: TEX PRADO Facility: [facility]:[place] : 1935 Planned Disposition: Home with Home Health Anticipated Discharge Date: Discharge Date: Expected LOS: Initial Reviewer: [email or web address] Initial Review Date: 06/04/2020 Generated: 06/04/20 2:03 pm Comments DCP- Discharge Planning Updated by [email or web address]: Julita Del Valle on 06/04/20 11:[address] Patient Name: TEX PRADO Admission Status: ER Accout number: [id number] Admission Date: 06-01-2020 : 1935 Admission Diagnosis:HEART FAILURE, UNSPECIFIED Attending: TOMY CHUNG Current LOS: 3 Anticipated DC Date: Planned Disposition: Home with Home Health Primary Insurance: MEDICARE A & B DC PLAN: Home with [facility] ANTICIPATED DC NEEDS: No needs identified CM met with patient to complete initial dc planning assessment. CM educated patient on the CM role and verbal consent given by patient to complete assessment. CM verified patient's address, phone number, and emergency contact phone numbers. Patient lives at home alone. Patient currently has Home Health Services and wishes to resume at discharge. SHEILA form signed by patient for resumption of Home Health. I spoke with Meme at [facility] in [place] and order and clinical faxed. Signed form placed in chart and signed form given to patient. At discharge patient plans to return and feels this is a safe discharge. Patient denied further known discharge needs at this time. Transportation provider at discharge will be her son, Boogie. Oxygen saturation is 97% at rest and 94% with exertion, she does not qualify for home oxygen. CM will continue to follow and will assist as needed with dc plans/needs. Newspaper Press Operator Apprentice: Julita Del Valle DCPIA - Discharge Planning Initial Assessment Updated by [email or web address]: Julita Del Valle on 06/04/20 12:52 pm * Is the patient Alert and Oriented? Yes * How many steps to enter\exit or inside your home? 2wrails/0 * PCP Nurys Estes with [facility] in [facility] * Pharmacy [facility] in [facility] * Preadmission Environment Home Alone * ADLs Independent * Equipment Cane Oxygen Walker * Other Equipment Rollator walker * List name and contact numbers for known caregivers / representatives who currently or will assist patient after discharge: Charissa Rae - [phone] Gwen seay Lamin Prado - Son and [facility] - [phone] * Verbal permission to speak to the caregivers and representatives has been obtained from the patient. Yes * Community resources currently utilized Home Health * Please name any agencies selected above. [facility] ([place]) * Additional services required to return to the preadmission environment? No * Can the patient safely return to the preadmission environment? Yes * Has this patient been hospitalized within the prior 30 days at any hospital? No Coverage Notice Reviewer: [id number] Jennifer Del Valle Notice Issued Date-Time: 06/04/2020 12:00 Notice Type: IM Discharge Notice Notice Delivered To: Patient Relationship to Patient: Self Pediatric Physical Therapy Assistant Name: Delivery Method: HAND - Hand Delivered Sahara Days: Prior Verbal Notification: Recipient Understood Notice: Yes Recipient Signature: Yes Med Rec Note Co-signed by Attending: Coverage Notice Comment: IMM explained, signed, given, copy placed in MR Last DP export: 06/04/20 11:55 Patient Name: TEX PRADO Page 25675 at 1304 All edits/amendments must be made on the electronic document DICTATION DATE: 06/04/20 1303 TRAFFIC TECHNICIAN: TREVOR 06/04/20 1303 RPT#: [id number] DC DATE: STATUS: ADM IN [facility] [address] [place] [address] END OF REPORT
--- NOTE | 2020-06-04 13:39 | NUR ---
ATTEMPT MADE TO GO OVER DISCHARGE PAPERS AND FUTURE APPOINTMENTS AND PT STATES "I WILL NOT BE HERE AT 7:30 IN THE MORNING. I L[place] IN [place] AND I WONT MAKE IT HERE THAT EARLY". SCHEDULING CALLED TO CHANGE APPOINTMENT PER PT REQUEST AND NO APPOINTMENT AVAILABLE FOR THAT DAY OR FOR THE FOLLOWING WEEK. PT NOTIFIED.
--- NOTE | 2020-06-04 14:21 | NUR ---
ALL DISCHARGE INSTRUCTIONS COVERED WITH PT. PT INFORMED OF APPOINTMENT TIMES AND TIME OF BIOPSY. PT VERBALIZES UNDERSTANDING AND STATES "I WILL STAY WITH MY OTHER SON THE NIGHT BEFORE AND MAKE IT ON TIME". PT DENIES ANY FURTHER QUESTIONS/CONCERNS/NEEDS AT THIS TIME. PIV TO LEFT AC REMOVED WITH CATHETER TIP INTACT. DRESSING APPLIED. PT SIGNES ALL DISCHARGE PAPERS. PT TO NOTIFY NURSE WHEN TRANSPORTATION ARRIVES. ALL SIGNED DISCHARGE PAPERS PLACED IN PT CHART.
--- NOTE | 2020-06-04 14:34 | NUR ---
PT TRANSPORTED FROM FLOOR FOR DISCHARGE. PT DENIES FURTHER QUESTIONS/CONCERNS/NEEDS AT THIS TIME.
[2020-06-04 19:08] LABS: SPE - A/G RATIO 1.4 (0.7-1.7); SPE - ALBUMIN 3.6 g/dL (2.9-4.4); SPE - ALPHA-1 GLOBULIN 0.3 g/dL (0.0-0.4); SPE - ALPHA-2 GLOBULIN 0.9 g/dL (0.4-1.0); SPE - BETA GLOBULIN 0.8 g/dL (0.7-1.3); SPE - GAMMA GLOBULIN 0.8 g/dL (0.4-1.8); SPE - M-SPIKE Not Observed g/dL (Not Observed); SPE - TOTAL PROTEIN 6.2 g/dL (6.0-8.5)
--- NOTE | 2020-06-05 09:20 | MORECARE ---
CASE MANAGEMENT DISCHARGE SUMMARY PATIENT: TEX PRADO UNIT: [id number] ADM DATE: 06/01/20 AGE: 84 : 34 SEX: F ROOM/BED: D.4864 AUTHOR: BHARAT,DOC PHYSICIAN: REFERRING PHYSICIAN: TOMY CHUNG MD DATE OF SERVICE: 06/05/20 Discharge Plan Patient Name: TEX PRADO Facility: [facility]:[place] : 1935 Planned Disposition: Home with Home Health Anticipated Discharge Date: 06/04/20 Discharge Date: 06/04/2020 Expected LOS: 3 Initial Reviewer: [email or web address] Initial Review Date: 06/04/2020 Generated: 06/05/20 10:19 am Comments DCP- Discharge Planning Updated by [id number]: Julita Del Valle on 06/04/20 11:[address] Patient Name: TEX PRADO Admission Status: ER Accout number: [id number] Admission Date: 06-01-2020 : 1935 Admission Diagnosis:HEART FAILURE, UNSPECIFIED Attending: TOMY CHUNG Current LOS: 3 Anticipated DC Date: Planned Disposition: Home with Home Health Primary Insurance: MEDICARE A & B DC PLAN: Home with [facility] ANTICIPATED DC NEEDS: No needs identified CM met with patient to complete initial dc planning assessment. CM educated patient on the CM role and verbal consent given by patient to complete assessment. CM verified patient's address, phone number, and emergency contact phone numbers. Patient lives at home alone. Patient currently has Home Health Services and wishes to resume at discharge. SHEILA form signed by patient for resumption of Home Health. I spoke with Meme at [facility] in [place] and order and clinical faxed. Signed form placed in chart and signed form given to patient. At discharge patient plans to return and feels this is a safe discharge. Patient denied further known discharge needs at this time. Transportation provider at discharge will be her son, Boogie. Oxygen saturation is 97% at rest and 94% with exertion, she does not qualify for home oxygen. CM will continue to follow and will assist as needed with dc plans/needs. Longwall Headgate Operator: Julita Del Valle DCPIA - Discharge Planning Initial Assessment Updated by [id number]: Julita Hinesell on 06/04/20 12:52 pm * Is the patient Alert and Oriented? Yes * How many steps to enter\exit or inside your home? 2wrails/0 * PCP Nurys Estes with [facility] in [facility] * Pharmacy [facility] in [facility] * Preadmission Environment Home Alone * ADLs Independent * Equipment Cane Oxygen Walker * Other Equipment Rollator walker * List name and contact numbers for known caregivers / representatives who currently or will assist patient after discharge: Charissa Rae - [phone] Gwen seay Lamin Cj - Son and [facility] - [phone] * Verbal permission to speak to the caregivers and representatives has been obtained from the patient. Yes * Community resources currently utilized Home Health * Please name any agencies selected above. [facility] ([place]) * Additional services required to return to the preadmission environment? No * Can the patient safely return to the preadmission environment? Yes * Has this patient been hospitalized within the prior 30 days at any hospital? No Coverage Notice Reviewer: [id number] - Julita Del Valle Notice Issued Date-Time: 06/04/2020 12:00 Notice Type: IM Discharge Notice Notice Delivered To: Patient Relationship to Patient: Self Boat Worker Name: Delivery Method: HAND - Hand Delivered Sahara Days: Prior Verbal Notification: Recipient Understood Notice: Yes Recipient Signature: Yes Med Rec Note Co-signed by Attending: Coverage Notice Comment: IMM explained, signed, given, copy placed in MR Last DP export: 06/04/20 12:04 Patient Name: TEX PRADO Page 28260 at 0920 All edits/amendments must be made on the electronic document DICTATION DATE: 06/05/20918 SAMPLE MAKER ORIGINAL: TREVOR 06/05/20918 RPT#: [id number] DC DATE:06/04/20 STATUS: DIS IN [facility] [address] [place] [address] END OF REPORT
== END 2020-06-04 14:35 | disposition home health service (06) | DRG 811 ==
LOC: D.ER 16:41 → D.EDHOLD 19:44 → D.M2 19:44
PROVIDERS: Family Medicine; Internal Medicine Hematology & Oncology; ADMIT Family Medicine; ATTEND Family Medicine
DX: D64.9 Anemia, unspecified (principal); I50.23 Acute on chronic systolic (congestive) heart failure; E87.1 Hypo-osmolality and hyponatremia; I11.0 Hypertensive heart disease with heart failure; E78.5 Hyperlipidemia, unspecified; I25.10 Atherosclerotic heart disease of native coronary artery without angina pectoris; I48.0 Paroxysmal atrial fibrillation; Z79.01 Long term (current) use of anticoagulants

== ENCOUNTER 2020-06-08 07:17 | Day surgery (SDC) | payer MEDICARE, BC ==
[~2020-06-08] VITALS: Ht 167.6 cm; Wt 104.5 kg
[~2020-06-08 07:17] MED LIST changes: +FEXOFENADINE HC60 MG PO; +LASIX40 MG PO; +LISINOPRIL2.5 MG PO; +PRADAXA75 MG PO
[2020-06-08 07:41] LABS: BASOPHILS 0.7 % (0-2); HEMATOCRIT 26.9 % (36.0-48.0); HEMOGLOBIN 8.8 g/dL (12-16); IMMATURE GRANULOCYTES 0.2 % (0-5); LYMPHOCYTES 15.3 % (15-50); MCH 31.3 pg (26.0-34.0); MCHC 32.7 g/dL (31.0-37.0); MCV 95.7 fL (80.0-100.0); MEAN PLATELET VOLUME 8.6 fL (7.4-10.4); MONOCYTES 10.3 % (2-11); NEUTROPHILS 71.5 % (40-80); PLATELET COUNT 191 10x3/uL (130-400); RBC 2.81 10x6/uL (4.00-5.40); RDW 16.3 % (11.5-14.5)
[2020-06-08 07:49] LABS: ANION GAP 10.3 mmol/L (8-16); CALCIUM 9.6 mg/dL (8.5-10.1); CARBON DIOXIDE 30.7 mmol/L (21.0-32.0); CREATININE - SERUM 0.9 mg/dL (0.6-1.3)
[2020-06-08 07:51] LABS: APTT 31.4 SECONDS (22.8-39.4); INR 1.03 (0.85-1.17); PROTIME 13.5 SECONDS (11.6-15.0)
[2020-06-08 08:18] VITALS: Ht 167.6 cm; Wt 104.5 kg
--- NOTE | 2020-06-08 11:01 | NUR ---
1100 REG DIET ORDERED
--- NOTE | 2020-06-08 11:16 | NUR ---
1110 NO BLEEDING NOR HEMATOMA, DRINKING JUICE, NO REQUESTS.
== END 2020-06-08 13:45 | disposition home or self-care (01) ==
LOC: D.SP 07:17 → D.CT 10:00 → D.SP 13:45
PROVIDERS: Radiology Vascular & Interventional Radiology; ATTEND Internal Medicine Hematology & Oncology
DX: D64.9 Anemia, unspecified (principal); R06.02 Shortness of breath; R60.9 Edema, unspecified